=== PATIENT | female | born 1950 | race African-American/Black ===

== ENCOUNTER 2022-07-28 14:51 | Emergency (ER) | payer OTHER ==
[2022-07-28] MEDS ORDERED: NA CHLORIDE 0.9% 1,000 ML ONE ×2 (15:48→18:38)
[2022-07-28 15:49] LABS: Hematocrit 28.6 % (36.0-45.0); MCV 97.1 fL (80-100); MPV 8.5 fL (7.6-11.3); RBC Red Blood Cell Count 2.95 M/uL (3.86-4.86)
[2022-07-28 16:03] LABS: Albumin 1.7 g/dL (3.4-5.0); Bilirubin Total 21.7 mg/dL (0.2-1.0); Potassium 2.6 mEq/L (3.5-5.1); Protein, Total 6.2 g/dL (6.4-8.2)
--- NOTE | 2022-07-28 16:17 | EDPHYS ---
Physician Documentation [facility] Name: Leonie Ferreira Age: 71 yrs Sex: Female : 1950 Arrival Date: 07/28/2022 Time: 14:[address] Private MD: ED Physician Jakub Ordaz HPI: 07/28 15:35 This 71 yrs old Black Female presents to ER via Ambulatory with complaints of Urinary ms3 Problem, Skin Problem, Weight loss. 15:35 71-year-old female with no past medical history presents for 2 months of jaundice, 30 ms3 pound weight loss, itching. Patient denies pain at this time. Patient denies nausea, vomiting. Patient denies alleviating or inciting factors. Historical: - Allergies: 15:10 No Known Allergies; jl7 - Home Meds: 15:10 None [Active]; jl7 - PMHx: 15:10 None; jl7 - PSHx: 15:10 inguinal hernia repair; jl7 - Immunization history:: Adult Immunizations unknown. - Social history:: Smoking status: Patient denies any tobacco usage or history of. ROS: 15:35 Constitutional: Negative for fever, and chills. Neck: Negative for injury, pain, and ms3 swelling, Cardiovascular: Negative for chest pain, and palpitations. Respiratory: Negative for shortness of breath, cough, wheezing, and pleuritic chest pain. 15:35 Abdomen/GI: Negative for abdominal pain, nausea, vomiting, diarrhea, and constipation, MS/Extremity: Negative for injury and deformity. 15:35 Eyes: Positive for icterus. 15:35 Abdomen/GI: 15:35 Skin: Positive for jaundice. 15:35 All other systems are negative. Exam: 15:35 Constitutional: This is a well developed, well nourished patient who is awake, alert, ms3 and in no acute distress. Head/Face: Normocephalic, atraumatic. Neck: Trachea midline, no cervical lymphadenopathy. Supple, full range of motion without nuchal rigidity, or vertebral point tenderness. No Meningismus. Chest/axilla: Normal chest wall appearance and motion. Nontender with no deformity. Cardiovascular: Regular rate and rhythm with a normal S1 and S2. No gallops, murmurs, or rubs. Normal PMI, no JVD. No pulse deficits. Respiratory: Lungs have equal breath sounds bilaterally, clear to auscultation and percussion. No rales, rhonchi or wheezes noted. No increased work of breathing, no retractions or nasal flaring. Abdomen/GI: Soft, non-tender, with normal bowel sounds. No distension or tympany. No guarding or rebound. No evidence of tenderness throughout. 15:35 MS/ Extremity: Pulses equal, no cyanosis. Neurovascular intact. Full, normal range of motion. 15:35 Eyes: Pupils: equal, round, and reactive to light and accomodation, Sclera: icterus, is present. Vital Signs: 15:07 BP 136 / 65; Pulse 110; Resp 19; Temp 99.1; Pulse Ox 96% ; Pain 0/10; jl7 17:41 BP 143 / 79; Pulse 92; Pulse Ox 100% ; ap3 17:56 Weight 61.23 kg; bd 19:00 BP 148 / 69; Pulse 95; Resp 22; Pulse Ox 100% ; vc1 15:07 Pain Scale: Adult jl7 MDM: 15:12 Patient medically screened. ms3 15:35 Differential Diagnosis Hepatic CA vs Pancreas CA vs Choledocholithiasis . ms3 18:07 Data reviewed: vital signs, nurses notes, lab test result(s), radiologic studies, and ms3 as a result, I will transfer. Consideration of Admission/Observation Will transfer patient. I considered the following discharge prescriptions or medication management in the emergency department Medications were administered in the Emergency Department. See MAR. Independent interpretation of the following test(s) in the Emergency Department. Historians other than the Patient: Friend: . Counseling: I had a detailed discussion with the patient and/or guardian regarding: the historical points, exam findings, and any diagnostic results supporting the discharge/admit diagnosis, lab results, radiology results, the need to transfer to another facility. Response to treatment: There is no appreciated change of the patient's symptoms at this time, and as a result, I will transfer. ED course: Patient wishes to be DNR. Patient does not want CPR or intubation. This was witnessed by JACLYN Arauz. Discussed results of CT ultrasound and labs with patient. Discussed with patient necessity for transfer to the [facility] Center. Patient understands agrees with plan. All questions were answered. 18:08 Data reviewed: vital signs, nurses notes, lab test result(s), radiologic studies. kdr 18:22 ED course: Discussed case with Dr Pringle and she accepts patient to the medicine ms3 floor.. 07/28 15:13 Order name: CBC with Diff; Complete Time: 17:41 ms3 07/28 15:13 Order name: CMP; Complete Time: 17:41 ms3 07/28 15:13 Order name: Lipase; Complete Time: 17:41 ms3 07/28 16:07 Order name: Manual Differential; Complete Time: 17:41 EDMS 07/28 15:13 Order name: Abdomen Limited US; Complete Time: 17:41 ms3 07/28 15:13 Order name: CT Abd/Pelvis - IV Contrast Only; Complete Time: 17:41 ms3 07/28 15:13 Order name: IV Saline Lock; Complete Time: 15:39 ms3 07/28 15:13 Order name: Labs collected and sent; Complete Time: 15:39 ms3 Administered Medications: 15:44 Drug: NS 0.9% IV 1000 ml Route: IV; Rate: 1 bolus; Site: right antecubital; ap3 18:54 Follow up: IV Status: Completed infusion ap3 16:55 Drug: Potassium Chloride IV 60 mEq Route: IV; Rate: calculated rate; Site: right ap3 antecubital; 17:42 Drug: Ondansetron IVP 4 mg Route: IVP; Site: right antecubital; ap3 18:53 Follow up: Response: No adverse reaction; Nausea is decreased ap3 18:53 Drug: NS 0.9% IV 1000 ml Route: IV; Rate: 75 ml/hr; Site: right antecubital; ap3 19:55 Drug: Piperacillin-Tazobactam IVPB 3.375 grams Route: IVPB; Infused Over: 60 mins; vc1 Site: left antecubital; Disposition Summary: 07/28/22 16:16 Transfer Ordered Transfer Location: [facility] ms3 Reason: Higher level of care ms3 Condition: Stable ms3 Problem: new ms3 Symptoms: are unchanged ms3 Accepting Physician: Dr Pringle(07/28/22 20:23) vc1 Diagnosis - Unspecified jaundice ms3 - Leukocytosis ms3 - Hypokalemia ms3 - Cholangiocarcinoma ms3 - Transaminitis ms3 Forms: - Medication Reconciliation Form ms3 - SBAR form ms3 Signatures: Dispatcher [employer] EDZaheer Angelo MD MD kdr Mickail, Joel, PA PA jmm Leal, Jahala, RN RN jl7 Katherine Arauz RN RN ap3 Jakub Ordaz DO DO ms3 Alla Malcolm RN RN vc1 Corrections: (The following items were deleted from the chart) 18: 16:16 Dr [email or web address] ms3 20:23 18:23 Dr Pringle ms3 vc1
--- NOTE | 2022-07-28 16:17 | ER ---
Nurse's Notes [facility] Name: Leonie Ferreira Age: 71 yrs Sex: Female : 1950 Arrival Date: 07/28/2022 Time: 14:[address] Private MD: Diagnosis: Unspecified jaundice;Leukocytosis;Hypokalemia;Cholangiocarcinoma;Transaminitis Presentation: 07/28 15:07 Chief complaint: Patient states: Itchy skin, 30 pound weight loss without trying in jl7 about 6-8 weeks, dark urine, denies pain. Coronavirus screen: At this time, the client does not indicate any symptoms associated with coronavirus-19. Ebola Screen: No symptoms or risks identified at this time. Initial Sepsis Screen: Does the patient meet any 2 criteria? No. Patient's initial sepsis screen is negative. Does the patient have a suspected source of infection? No. Patient's initial sepsis screen is negative. Risk Assessment: Do you want to hurt yourself or someone else? Patient reports no desire to harm self or others. Onset of symptoms is unknown. Care prior to arrival: None. 15:07 Method Of Arrival: Ambulatory [facility] 15:07 Acuity: PEGGY 3 jl7 Triage Assessment: 15:10 General: Appears in no apparent distress. uncomfortable, Behavior is calm, cooperative, jl7 appropriate for age. Pain: Denies pain. EENT: Sclera/Cornea yellow. Neuro: Level of Consciousness is awake, alert, obeys commands, Oriented to person, place, time, situation. Cardiovascular: Patient's skin is warm and dry. Respiratory: Airway is patent Respiratory effort is even, unlabored, Respiratory pattern is regular, symmetrical. GI: Abdomen is round Patient currently denies diarrhea, nausea, vomiting. : Reports Dark urine. Derm: Skin is dry, Skin is normal, Skin temperature is warm. Historical: - Allergies: 15:10 No Known Allergies; jl7 - Home Meds: 15:10 None [Active]; jl7 - PMHx: 15:10 None; jl7 - PSHx: 15:10 inguinal hernia repair; jl7 - Immunization history:: Adult Immunizations unknown. - Social history:: Smoking status: Patient denies any tobacco usage or history of. Screenin:45 [facility] ED Fall Risk Assessment (Adult) History of falling in the last 3 months, ap3 including since admission No falls in past 3 months (0 pts). Abuse screen: Denies threats or abuse. Nutritional screening: No deficits noted. Tuberculosis screening: No symptoms or risk factors identified. Assessment: 15:44 General: Appears in no apparent distress. Behavior is calm, cooperative, appropriate ap3 for age. Pain: Denies pain. Neuro: Level of Consciousness is awake, alert, obeys commands, Oriented to person, place, time, situation. Cardiovascular: Patient's skin is warm and dry. Respiratory: Airway is patent Respiratory effort is even, unlabored. GI: Abdomen is round distended, Reports weight loss without trying. Derm: Reports itching. 15:45 EENT: Eyes appear yellow in color. ap3 16:30 Reassessment: Patient and/or family updated on plan of care and expected duration. Pain ap3 level reassessed. Patient is alert, oriented x 3, equal unlabored respirations, skin warm/dry/pink. 17:41 Reassessment: patient reports nausea. new verbal orders rc'd for zofran 4mg IV. ap3 17:49 Reassessment: patient reports that she does not want to be resuscitated. patient states ap3 she has an in and out of hospital DNR. 18:56 Reassessment: attempted to call report to [facility], was left on hold for 10 ap3 minutes. 19:17 Reassessment: attempted to call report to receiving facility. no answer. ap3 19:44 Reassessment: No changes from previously documented assessment. Patient and/or family vc1 updated on plan of care and expected duration. Pain level reassessed. Patient is alert, oriented x 3, equal unlabored respirations, skin warm/dry/pink. Vital Signs: 15:07 BP 136 / 65; Pulse 110; Resp 19; Temp 99.1; Pulse Ox 96% ; Pain 0/10; jl7 17:41 BP 143 / 79; Pulse 92; Pulse Ox 100% ; ap3 17:56 Weight 61.23 kg; bd 19:00 BP 148 / 69; Pulse 95; Resp 22; Pulse Ox 100% ; vc1 15:07 Pain Scale: Adult jl7 ED Course: 14:55 Patient arrived in ED. mr 14:59 Jakub Ordaz DO is Attending Physician. ms3 15:09 Triage completed. jl7 15:10 Arm band placed on right wrist. jl7 15:21 Katherine Arauz, RN is Primary Nurse. ap3 15:44 Initial lab(s) drawn, by me, sent to lab. Inserted saline lock: 22 gauge in right ap3 antecubital area, using aseptic technique. Blood collected. 16:09 Abdomen Limited US In Process Unspecified. EDMS 17:13 CT Abd/Pelvis - IV Contrast Only In Process Unspecified. EDMS 17:41 Warm blanket given. ap3 17:50 Patient has correct armband on for positive identification. Bed in low position. Call ap3 light in reach. Side rails up X2. Adult w/ patient. Pulse ox on. NIBP on. 17:53 initiated transfer to [facility]. bd 18:08 Attending Physician role handed off by Jakub Ordaz DO kdr 18:08 Zaheer Driver MD is Attending Physician. kdr 18:22 Jakub Ordaz DO is Attending Physician. ms3 19:50 Inserted saline lock: 22 gauge in left antecubital area, using aseptic technique. vc1 20:00 No provider procedures requiring assistance completed. vc1 20:19 Patient transferred, IV remains in place. vc1 Administered Medications: 15:44 Drug: NS 0.9% IV 1000 ml Route: IV; Rate: 1 bolus; Site: right antecubital; ap3 18:54 Follow up: IV Status: Completed infusion ap3 16:55 Drug: Potassium Chloride IV 60 mEq Route: IV; Rate: calculated rate; Site: right ap3 antecubital; 17:42 Drug: Ondansetron IVP 4 mg Route: IVP; Site: right antecubital; ap3 18:53 Follow up: Response: No adverse reaction; Nausea is decreased ap3 18:53 Drug: NS 0.9% IV 1000 ml Route: IV; Rate: 75 ml/hr; Site: right antecubital; ap3 19:55 Drug: Piperacillin-Tazobactam IVPB 3.375 grams Route: IVPB; Infused Over: 60 mins; vc1 Site: left antecubital; Medication: 19:59 VIS not applicable for this client. vc1 Outcome: 16:16 ER care complete, transfer ordered by . ms3 20:19 Transferred by ground EMS to [facility], [facility], Transfer form completed. vc1 20:19 Condition: good 20:19 Instructed on the need for transfer. 20:23 Patient left the ED. vc1 Signatures: Dispatcher [employer] EDMS Lennie Umana Kevin, MD MD kdr Rivera, Mary mr Hutton, Santiago, RN RN jl7 Katherine Arauz RN RN ap3 Jakub Ordaz DO DO ms3 Alla Malcolm RN RN vc1 Corrections: (The following items were deleted from the chart) 18:56 18:53 Reassessment: ap3 ap3
[2022-07-28 16:38] LABS: Blood Morphology Comment NOT SEEN (NOT SEEN); Platelet Estimate INCR
[2022-07-28] MEDS ORDERED: KCL 20 MEQ/100 mL IVPB 300 ML IV ONE (16:57)
[2022-07-28] MEDS ORDERED: KCL 20 MEQ/100 mL IVPB 100 ML IV SCH (17:00)
--- NOTE | 2022-07-28 17:36 | RAD REPORT ---
EXAM DESCRIPTION: CT - Abdomen Pelvis W Contrast - 07/28/2022 5:11 pm CLINICAL HISTORY: Abdominal pain/jaundice COMPARISON: none. TECHNIQUE: Computed axial tomography of the abdomen pelvis was obtained. 100 cc Isovue-300 was admin istered intravenously. Oral contrast was not requested which limits evaluation of bowel and appendix All CT scans are performed using dose optimization technique as appropriate and may include automated exposure control or mA/KV adjustment according to patient size. FINDINGS: Gallbladder contains multiple stones. Marked dilatation intrahepatic biliary tree. 4 centimeter hypodense lesion anterior segment right lob e of the liver. Common bile and common hepatic ducts are filled with soft tissue and dilated. Pancreatic body and tail unremarkable. Adrenals and spleen are unremarkable Marked right hydronephrosis. Moderate left hydronephrosis. The ureters are dilated to the level of th e bladder. There appears to be a bladder prolapse. Small inguinal hernias . Retrocrural and periaortic/caval lymphadenopathy. Lymph nodes measure up to 2 centimeters. Small to moderate amount of ascites Several soft tissue nodules anterior subcutaneous fat IMPRESSION: 4 centimeter hepatic mass. Soft tissue throughout the extrahepatic biliary tree. Marked intrahepatic dilatation. It is possible the patient has a cholangiocarcinoma. Retrocrural and periaortic/caval lymphadenopathy likely neoplastic Several soft tissue nodules anterior subcutaneous fat may be neoplastic Large bladder prolapse. This likely obstructs ureters bilaterally resulting in marked right and moder ate left hydronephrosis Cholelithiasis It is recommended that the patient have an MRI abdomen and MRCP for further evaluation
--- NOTE | 2022-07-28 17:37 | RAD REPORT ---
EXAM DESCRIPTION: US - Abdomen Exam Limited - 07/28/2022 4:07 pm CLINICAL HISTORY: Abdominal pain. COMPARISON: None. FINDINGS: Gallbladder contains many stones. Gallbladder wall is not thickened. Marked dilatation of the intra and extrahepatic biliary tree. Marked right hydronephrosis IMPRESSION: Cholelithiasis without evidence of cholecystitis Marked dilatation of biliary tree Marked right hydronephrosis
[2022-07-28] MEDS ORDERED: ONDANSETRON 4 MG/2 ML VIAL ONE (17:40)
[2022-07-28] MEDS ORDERED: NA CHLORIDE 0.9% 100 ML ONE (19:49)
[2022-07-28] MEDS ORDERED: PIPERACIL/TAZO 3.375 GM VIAL IV ONE (19:49)
[2022-07-28 21:24] VITALS: TEMP 99.1
[2022-07-28 21:25] VITALS: O2SAT 100
[2022-07-28 21:26] VITALS: BP 148/69
== END 2022-07-28 20:23 | disposition short-term general hospital (02) ==
LOC: ER 14:51
DX: C22.1 Intrahepatic bile duct carcinoma (principal); D72.829 Elevated white blood cell count, unspecified; E87.6 Hypokalemia; R74.01 Elevation of levels of liver transaminase levels
CPT/HCPCS: 85025; 36415; 83690; 80053; 74177; 76705; 99285; Q9967; J3480; J2543; J2405; J7030 ×2

== ENCOUNTER 2022-08-11 20:09 | Emergency (ER) | payer OTHER ==
--- OUTSIDE RECORDS SUMMARY | 2022-08-11 20:15 | XMS REPORT | Continuity of Care Document ---
:1950 Author Organization [facility] t Address [address] [facility] [address] [place] [address] Care Team Providers Name Role Phone No, Pcp [facility] Primary Care Physician Unavailable FILIPE COPPOLA Attending Clinician Unavailable RAUL GUTIERREZ Attending Clinician Unavailable VERÓNICA RIZZO Attending Clinician Unavailable MARGI BANG Attending Clinician Unavailable CR RUBIO Attending Clinician Unavailable MARIAM PRINGLE Attending Clinician Unavailable GILES BRODERICK Attending Clinician Unavailable VERÓNICA RIZZO Attending Clinician Unavailable Ramon Perry MD Attending Clinician Verónica Rizzo MD Attending Clinician [phone] ALINE MCGRAW Attending Clinician Unavailable Aline Mcgraw Attending Clinician Mariam Pringle MD Attending Clinician ALINE MCGRAW Admitting Clinician Unavailable Payers Payer Name Policy Type Policy Number Effective Date Expiration Date S maryam MEDICARE A B [id number] 2017 00:00:00 [employer] HMO POS QPOS [id number] 2017 00:00:00 MEDICARE PART A [id number] 2017 \\T\\ B - MEDICARE 00:00:00 OPEN ACCESS [id number] 2022 HMO/POS/EPO/PPO - 00:00:00 [employer] Problems Condition Condition Condition Status Onset Resolution Last Treating Co mments Source Name Details Category Date Date Treatment Clinician Date Itching Itching Disease [facility] Liver mass Liver mass Disease [facility] Jaundice Jaundice Disease [facility] Allergies, Adverse Reactions, Alerts Allergy Allergy Status Severity Reaction(s) Onset Inactive Treating Comm ents Source Name Type Date Date Clinician NO KNOWN Allergy Active [facility] Social History Social Habit Start Date Stop Date Quantity Comments Source Alcohol intake 2022-07-30 2022-07-30 .43 /d [facility]00 00:00:00 [facility] Center Exposure to 2022-07-19 2022-07-29 Not sure [facility] SARS-CoV-2 00:00:00 00:28:00 [facility] (event) Tobacco use and 2022-07-28 2022-07-28 Smokeless tobacco [facility] exposure 00:00:00 00:00:00 non-user [facility] Sex Assigned [birth year] [facility] 00:00:00 00:00:00 [facility] Smoking Status Start Date Stop Date Source Never smoked tobacco [facility] Medications This patient has no known medications. Vital Signs Vital Name Observation Time Observation Value Comments Source HEIGHT 2022-08-04 13:33:00 167 cm WEIGHT 2022-07-29 06:00:00 61.009 kg HEIGHT 2022-08-04 13:33:00 167 cm WEIGHT 2022-07-29 06:00:00 61.009 kg Heart rate 2022-07-31 11:11:47 86 /min [facility] Respiratory rate 2022-07-31 11:11:47 18 /min [facility] Oxygen saturation in 2022-07-31 11:11:47 100 /min [facility] Arterial blood by Medical Ce nter Pulse oximetry Body temperature 2022-07-31 11:11:34 36.83 Melinda [facility] Systolic blood 2022-07-31 11:10:45 112 mm[Hg] [facility] Diastolic blood 2022-07-31 11:10:45 61 mm[Hg] [facility] Body weight 2022-07-29 06:00:00 61.009 kg [facility] Procedures Procedure Date / Time Performing Clinician Source Performed REPORT OF PROCEDURE - 2022-07-31 08:23:38 Ravindra [facility] ENDOSCOPY URL [facility] COMPREHENSIVE METABOLIC 2022-07-31 04:44:00 Margi Bang [facility] MAGNESIUM 2022-07-31 04:44:00 Margi Bang [facility] CBC W/PLT COUNT & AUTO 2022-07-31 04:44:00 Raul Gutierrez [facility] CBC W/PLT COUNT & AUTO 2022-07-31 04:44:00 Raul Gutierrez [facility] [place] ERCP 2022-07-30 11:20:00 Ravindra [facility] CYTOLOGY 2022-07-30 11:14:00 Ravindra [facility] CYTOLOGY REQUEST 2022-07-30 11:14:00 Ravindra [facility] PROCEDURE W/ C-ARM 2022-07-30 10:27:00 Ravindra [facility] ERCP, WITH SPHINCTEROTOMY 2022-07-30 10:27:00 Ravindra [facility] ERCP, WITH BALLOON SWEEP OF 2022-07-30 10:27:00 Ravindra [facility] BILE DUCTS [facility] ENDOSCOPIC RETROGRADE 2022-07-30 10:27:00 Ravindra [facility] CHOLANGIOPANCREATOGRAPHY, [facility] WITH BILE DUCT STENT INSERTION PROTHROMBIN TIME/INR 2022-07-30 05:15:00 Margi Bang [facility] CBC (HEMOGRAM ONLY) 2022-07-30 05:15:00 Margi Bang [facility] COMPREHENSIVE METABOLIC 2022-07-30 05:15:00 Margi Bang [facility] MAGNESIUM 2022-07-30 05:15:00 Margi Bang [facility] CT CHEST WITH IV CONTRAST 2022-07-29 16:00:17 Corina Mcgraw [facility] CT ABDOMEN/PELVIS WITH & 2022-07-29 16:00:17 [facility] WITHOUT IV CONTRAST Medical Cent er CARCINOEMBRYONIC ANTIGEN 2022-07-29 12:38:00 [facility] (CEA) [facility] Center PREALBUMIN 2022-07-29 12:38:00 [facility] XR CHEST 1 VIEW PORTABLE / 2022-07-29 10:47:18 Dhiraj Singh [facility] ABORH, MANUAL 2022-07-29 05:40:00 Karla Og [facility] CBC W/PLT COUNT & AUTO 2022-07-29 04:10:00 Aline Mcgraw [facility] BASIC METABOLIC PANEL 2022-07-29 04:10:00 Aline Mcgraw [facility] HEPATIC FUNCTION PANEL 2022-07-29 04:10:00 Aline Mcgraw [facility] PHOSPHORUS 2022-07-29 04:10:00 [facility] MAGNESIUM 2022-07-29 04:10:00 [facility] PROTHROMBIN TIME/INR 2022-07-29 04:10:00 [facility] LIPID PANEL 2022-07-29 04:10:00 [facility] HEMOGLOBIN A1C 2022-07-29 04:10:[address] [facility] TYPE AND SCREEN, AUTOMATED 2022-07-29 04:10:00 Yanick Mcgraw [facility] CBC W/PLT COUNT & AUTO 2022-07-29 04:10:[address] [facility] Plan of Care Planned Activity Planned Date Details Comments Source Future Scheduled 2023-07-[address] [facility] Test 00:00:00 Counseling and Medical Cente r Screening (12+) [code = Tobacco Cessation Counseling and Screening (12+)] Future Scheduled 2022-10-[address] [facility] Test 00:00:00 (Season Ended) [code = Medic al Center Influenza Vaccine (Season Ended)] Future Scheduled 2022-02-[address] [facility] Test 00:00:00 (12+) [code = Medical Center DEPRESSION SCREENING (12+)] Future Scheduled 2022-02-16 FALLS RISK SCREENING [facility] Test 00:00:00 [code = FALLS RISK Medical C enter SCREENING] Future Scheduled 2019-09-23 Screening for malignant [facility] Test 00:00:00 neoplasm of breast Medical C enter (procedure) [code = 174452603] Future Scheduled 2018-09-[address] [facility] Test 00:00:00 WELLNESS (YEAR 2 or Medical Center FIRST YEAR if no IPPE) [code = MEDICARE ANNUAL WELLNESS (YEAR 2 or FIRST YEAR if no IPPE)] Future Scheduled 2017 PNEUMOCOCCAL 65+ YRS ([address] [facility] Test 00:00:00 - PCV) [code = Medical Cente r PNEUMOCOCCAL 65+ YRS (1 - PCV)] Future Scheduled 2002 SHINGLES VACCINES ([address] [facility] Test 00:00:00 2) [code = SHINGLES Medical Center VACCINES (1 of 2)] Future Scheduled 1971-10-17 DTAP/TDAP/TD VACCINES [facility] 00:00:00 (1 - Tdap) [code = Medical C enter DTAP/TDAP/TD VACCINES (1 - Tdap)] Future Scheduled 1970 HEPATITIS C SCREENING [facility] 00:00:00 [code = HEPATITIS C Medical Center SCREENING] Future Scheduled 1951-04-15 COVID-19 VACCINE (#1) [facility] 00:00:00 [code = COVID-[address] VACCINE (#1)] Future Scheduled 1952 CT Colonography (combo) [facility] 00:00:00 [code = CT Colonography [facility] (combo)] Future Scheduled 1950 Screening for malignant [facility] Test 00:00:00 neoplasm of colon Medical Ce nter (procedure) [code = 055324183] Future Scheduled 1950 Screening for malignant [facility] Test 00:00:00 neoplasm of colon Medical Ce nter (procedure) [code = 668074997] Future Scheduled 1950 DXA SCAN [code = DXA [facility] Test 00:00:00 SCAN] [facility] Future Scheduled 1950 Screening for malignant [facility] Test 00:00:00 neoplasm of colon Medical Ce nter (procedure) [code = 217805692] Future Scheduled 1950 Screening for malignant [facility] Test 00:00:00 neoplasm of colon Medical Ce nter (procedure) [code = 008054209] Future Scheduled 1950 Sigmoidoscopy [code = [facility] 00:[facility]00 Sigmoidoscopy] Medical Cente r Encounters Start End Encounter Admission Attending Care Care Encounter Source Date/Time Date/Time Type Type Clinicians Facility Department ID 2022-08-05 Inpatient ER LASHONDAORLANDOYAKOV, [facility] [id number] [facility] 00:00:00 FILIPE 2022-08-04 Inpatient ER CELI, [facility] [id number] SLE 13:24:24 YAASH 2022-07-30 Inpatient ER OTHMAN, [facility] [id number] SLE 12:22:34 MOHAMED 2022-07-29 Inpatient ER BANG, [facility] [id number] SLE 08:07:31 MARGI 2022-08-14 2022-08-14 Outpatient EL RAMIRO, [facility] [id number] SLE 00:00:00 00:00:00 CR 2022-07-28 2022-08-05 Inpatient ER CELI, [facility] [id number] [facility] 21:15:00 10:56:00 YASHASH 2022-08-04 2022-08-04 Inpatient ER GILES BRODERICK [facility] SLE [id number] [facility] 16:39:37 00:00:00 2022-07-30 2022-07-30 Outpatient JENNI RIZZO [facility] [id number] [address] [place] [address] 14:55:04 14:55:04 [facility] 2022-07-30 2022-07-30 Anesthesia [facility], [facility] [id number] 10:38:00 11:42:00 Event [facility] 2022-07-30 2022-07-30 [facility] [id number] 10:00:00 11:30:00 [facility] 2022-07-29 2022-07-29 Inpatient ER [facility], [facility] [id number] [facility] 14:50:40 23:59:00 [facility] 2022-07-29 2022-07-29 [facility], [facility] [id number] 13:40:00 23:59:00 Encounter [facility] 2022-07-29 2022-07-29 Travel [facility] [id number] [facility] 00:[facility]00 00:00:00 [facility] 2022-07-28 2022-07-28 [facility] [id number] 00:00:00 00:00:00 ion [facility] Results Test Test Test Results Result Source Description Time Comments Comments TISSUE EXAM 2022-07- Surgical Pathology Report Case: [id number] Authorizing Provider: 10:59:02 Raul Gutierrez MD Collected: 08/04/2022 05:43 PM Ordering Location: [address] Received: 08/05/2022 07:28 AM Service Pathologist: Maria Dolores White MD Specimen: Retroperitoneum, LEFT RETROPERITONEAL LYMPH NODE BIOPSY "Lymph node," left retroperitoneum, biopsy: - 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 Scant fragments of skeletal muscle are seen. The histomorphology and immunophenotype is not entirely specific but supports a upper gastrointestinal or pancreaticobiliary primary. Correlation with the imaging and endoscopic findings is recommended. No definitive lymphoid element is present, but the findings may represent a completely replaced lymph node. Clinical and imaging correlation is recommended. Dr. Ciera Rocha reviewed the case and agrees with no definitive lymphoid elements.Block A1 has adequate tumor cellularity for additional ancillary studies.[id number], [id number], [id number] patient is a 71-year-old female with a mass which appears to originate from the inferior surface of the gallbladder extends into segment V of the liver and into the brittany hepatis. There are greater than 30 lung metastases and extensive retroperitoneal lymphadenopathy. A. RetroperitoneumReceived in formalin labeled with the patient's name, medical record number and "retroperitoneum" are multiple marcelino to marcelino-white soft tissue cores ranging in size from 0.1-1.1 cm, which are submitted in toto in A1-A2.Ilsa BanksPerformed- CK7: Diffusely positive- CK20: Negative- CDX2: Shila positive- TTF1: Negative- GATA3: NegativeThe interpretation of this case included the use of immunohistochemistry or special stains.Control Slides Examined: In-house known positive controls were evaluated along with the test tissue. These control slides run alongside of the patients sample show appropriate staining. Internal positive and negative controls when available are evaluated Immunohistochemistry technical testing was performed at [facility], Pathology Laboratory where it was developed and its performance characteristics were determined. It has not been cleared or approved by the U.S. Food and Drug Administration. The FDA has determined that such clearance or approval is not necessary. The test is used for clinical purposes. It should not be regarded as investigational or for research. This laboratory is certified under the Clinical Laboratory Improvement Amendments of 1988 (CLIA-88) as qualified to perform high complexity clinical laboratory testing.[facility], Department of Pathology, [address] [place] [address], [facility], Department of Pathology, [address] [place] [address], [facility], [facility], [address] [place] [address], [address] BIOPSY 2022-07- ABDOMEN 20 [facility]40[facility] 1950 Sex: F PRO CEDURE: Image-guided biopsyProcedural PersonnelAttending physician(s): Filipe DELUNAre-procedure diagnosis: Retroperitoneal lymphadenopathy in the settingof gallbladder/hepatic mass.Post-procedure diagnosis: SameIndication: Histopathologic diagnosisPrevious biopsy of same target (QCDR): NoAdditional clinical history: NoneComplications: No immediate complications.IMPRESSION:Image-g uided biopsy of pathologic appearing Left retroperitoneal lymphnode.Plan: Specimen(s) sent for evaluation. PROCEDURE SUMMARY:- Percutaneous CT-guided coaxial core needle biopsy- Additional procedure(s): NonePROCEDURE DETAILS:Pre-procedureReference imaging for biopsy target: CT 07/29/2022onsent: Informed consent for the procedure including risks, benefitsand alternatives was obtained and time-out was performed prior to theprocedure.Preparation: The site was prepared and draped using maximal sterilebarrier technique including cutaneous antisepsis.Anesthesia/sedationLe jana of anesthesia/sedation: Moderate sedation (conscious sedation)Medications: 1 mg Versed, 50 mcg fentanyl IV.Anesthesia/sedation administered by: Independent trained observer underattending supervision with continuous monitoring of the patient?s levelof consciousness and physiologic statusTotal intra-service sedation time (minutes): 30Imaging prior to biopsyThe patient was positioned prone. Initial imaging was performed.Biopsy target:- Maximal diameter (cm): 2.6- Location: Left retroperitoneal infrarenal levelOther findings: NoneBiopsy Local anesthesia was administered. Under imaging guidance as stated inthe procedure summary, the biopsy needle was advanced to the target andbiopsy was performed.Coaxial needle: 17 gaugeCore needle biopsy device: Azimuth needle size: 18 gaugeNumber of core specimens: 5Needle removalThe biopsy needle was removed and a sterile dressing was applied.Tract embolization: NoneImaging following biopsyPost-biopsy imaging: Noncontrast CTPost-biopsy imaging findings: No immediate complicationsContrastContrast agent: NoneRadiation Dose (Dose modulation, iterative reconstruction, and/orweight-based adjustment of the mA/kV was utilized to reduce theradiation dose to as low as reasonably achievable.CT dose length product (mGy-cm): 507 Additional DetailsAdditional description of procedure: NoneEquipment details: NoneSpecimens removed: Biopsy samples as detailed aboveEstimated blood loss (mL): Less than 5Electronically Signed By: Filipe Coppola08/05/2022 12:42 CDTWorkstation Name: [id number] COMPREHENSIVE METABOLIC PANEL 2022-08-05 12:04:26 Test Item Value Reference Range Interpretation Comme nts TOTAL PROTEIN (BEAKER) 5.6 gm/dL 6.0-8.3 L (test code = 770) ALBUMIN (BEAKER) (test 2.1 g/dL 3.5-5.0 L code = 1145) ALKALINE PHOSPHATASE 571 U/L 40-150 H (BEAKER) (test code = 346) BILIRUBIN TOTAL (BEAKER) 6.4 mg/dL 0.2-1.2 H (test code = 377) SODIUM (BEAKER) (test 137 meq/L 136-145 code = 381) POTASSIUM (BEAKER) (test 3.2 meq/L 3.5-5.1 L code = 379) CHLORIDE (BEAKER) (test 113 meq/L 98-107 H code = 382) CO2 (BEAKER) (test code 15 meq/L 22-29 L = 355) BLOOD UREA NITROGEN 7 mg/dL 7-21 (BEAKER) (test code = 354) CREATININE (BEAKER) 0.61 mg/dL 0.57-1.25 (test code = 358) GLUCOSE RANDOM (BEAKER) 75 mg/dL 70-105 (test code = 652) CALCIUM (BEAKER) (test 8.2 mg/dL 8.4-10.2 L code = 697) AST (SGOT) (BEAKER) 44 U/L 5-34 H (test code = 353) ALT (SGPT) (BEAKER) 62 U/L 6-55 H (test code = 347) EGFR (BEAKER) (test code 97 mL/min/1.73 sq Interpretation of eGFR values = 1092) m Stage Descripti on Result G1 Normal or high >=90 G2 Mildly decreased 60-89 G3a Mildly to moderately 45-5 9 G3b Moderately to severely 30- 44 G4 Severly decreased 15-29 G5 Kidney failure <15Repo rted eGFR is based on the CK D-EPI 2020 equation that d oes not use a race coefficien tEstimated GFR is not as accurate as Creatinine Clearance in pr edicting glomerular filt ration rate. Estimated GFR i s not applicable for dialysis trung crane Erp Consultant ID - ADMINSpecimen moderately [id number] 12:04:25 Test Item Value Reference Range Interpretation Comments MAGNESIUM (BEAKER) (test code = 1.6 mg/dL 1.6-2.6 627) Erp Consultant ID - ADMINCBC W/PLT COUNT & AUTO [id number] 06:01:43 Test Item Value Reference Range Interpretation Comments WHITE BLOOD CELL COUNT 9.1 K/ L 3.5-10.5 (BEAKER) (test code = 775) RED BLOOD CELL COUNT 2.75 M/ L 3.93-5.22 L (BEAKER) (test code = 761) HEMOGLOBIN (BEAKER) 9.0 GM/DL 11.2-15.7 L (test code = 410) HEMATOCRIT (BEAKER) 28.1 % 34.1-44.9 L (test code = 411) MEAN CORPUSCULAR 102 fL 79-95 H Discordant results VOLUME (BEAKER) (test compar ed to previous code = 753) results; clinic al correlation req uired MEAN CORPUSCULAR 32.7 pg 25.6-32.2 H HEMOGLOBIN (BEAKER) (test code = 751) MEAN CORPUSCULAR 32.0 GM/DL 32.2-35.5 L HEMOGLOBIN CONC (BEAKER) (test code = 752) RED CELL DISTRIBUTION 19.0 % 11.7-14.4 H WIDTH (BEAKER) (test code = 412) PLATELET COUNT 335 K/CU MM 150-450 (BEAKER) (test code = 756) MEAN PLATELET VOLUME 10.0 fL 9.4-12.3 (BEAKER) (test code = 754) NUCLEATED RED BLOOD 0 /100 WBC 0-0 CELLS (BEAKER) (test code = 413) NEUTROPHILS RELATIVE 72 % PERCENT (BEAKER) (test code = 429) LYMPHOCYTES RELATIVE 17 % PERCENT (BEAKER) (test code = 430) MONOCYTES RELATIVE 8 % PERCENT (BEAKER) (test code = 431) EOSINOPHILS RELATIVE 2 % PERCENT (BEAKER) (test code = 432) BASOPHILS RELATIVE 1 % PERCENT (BEAKER) (test code = 437) NEUTROPHILS ABSOLUTE 6.55 K/ L 1.56-6.13 H COUNT (BEAKER) (test code = 670) LYMPHOCYTES ABSOLUTE 1.52 K/ L 1.18-3.74 COUNT (BEAKER) (test code = 414) MONOCYTES ABSOLUTE 0.71 K/ L 0.24-0.36 H COUNT (BEAKER) (test code = 415) EOSINOPHILS ABSOLUTE 0.17 K/ L 0.04-0.36 COUNT (BEAKER) (test code = 416) BASOPHILS ABSOLUTE 0.09 K/ L 0.01-0.08 H COUNT (BEAKER) (test code = 417) IMMATURE 1.00 % 0.00-1.00 GRANULOCYTES-RELATIVE PERCENT (BEAKER) (test code = 2801) [id number] 04:26:00 Test Item Value Reference Range Interpretation Comments MAGNESIUM (BEAKER) (test code = 1.7 mg/dL 1.6-2.6 627) Erp Consultant ID - BVCOMPREHENSIVE METABOLIC [id number] 04:26:00 Test Item Value Reference Range Interpretation Comments TOTAL PROTEIN 5.4 gm/dL 6.0-8.3 L (BEAKER) (test code = 770) ALBUMIN (BEAKER) 2.0 g/dL 3.5-5.0 L (test code = 1145) ALKALINE 624 U/L 40-150 H PHOSPHATASE (BEAKER) (test code = 346) BILIRUBIN TOTAL 6.7 mg/dL 0.2-1.2 H (BEAKER) (test code = 377) SODIUM (BEAKER) 139 meq/L 136-145 (test code = 381) POTASSIUM (BEAKER) 3.4 meq/L 3.5-5.1 L (test code = 379) CHLORIDE (BEAKER) 115 meq/L 98-107 H (test code = 382) CO2 (BEAKER) (test 15 meq/L 22-29 L code = 355) BLOOD UREA 7 mg/dL 7-21 NITROGEN (BEAKER) (test code = 354) CREATININE 0.64 mg/dL 0.57-1.25 (BEAKER) (test code = 358) GLUCOSE RANDOM 92 mg/dL 70-105 (BEAKER) (test code = 652) CALCIUM (BEAKER) 8.0 mg/dL 8.4-10.2 L (test code = 697) AST (SGOT) 47 U/L 5-34 H (BEAKER) (test code = 353) ALT (SGPT) 73 U/L 6-55 H (BEAKER) (test code = 347) EGFR (BEAKER) 96 Interpretatio n of eGFR (test code = 1092) mL/min/1.[address] age Description sq m Result G1 Linsey l or high >=90 G2 Mildly decreased 60-89 G3a Mildl y to moderately 45-5 9 G3b Moderately to s everely 30-44 G4 Severl y decreased 15-29 G5 Kidney failure <15Reported eGF R is based on the CKD-EPI 202 equation that d oes not use a race coefficientEsti mated GFR is not as accur ate as Creatinine Eva acevedo in predicting glom erular filtration rate . Estimated GFR is not appl icable for dialysis patien ts Erp Consultant ID - BVSpecimen moderately ictericPROTHROMBIN [id number] 03:58:39 Test Item Value Reference Range Interpretation Comments PROTIME (BEAKER) (test code = 17.0 seconds 11.9-14.2 H 759) INR (BEAKER) (test code = 370) 1.48 <=5.90 RECOMMENDED COUMADIN/WARFARIN INR THERAPY RANGESSTANDARD DOSE: 2.0 - 3.0 Includes: PROPHYLAXIS for venous thrombosis, systemic embolization; TREATMENT for venous thrombosis and/or pulmonary embolus.HIGH RISK: Target INR is 2.5-3.5 for patients with mechanical heart valves.CBC W/PLT COUNT & AUTO [id number] 03:51:36 Test Item Value Reference Range Interpretation Comments WHITE BLOOD CELL COUNT (BEAKER) 12.3 K/ L 3.5-10.5 H (test code = 775) RED BLOOD CELL COUNT (BEAKER) 2.58 M/ L 3.93-5.22 L (test code = 761) HEMOGLOBIN (BEAKER) (test code = 8.3 GM/DL 11.2-15.7 L 410) HEMATOCRIT (BEAKER) (test code = 25.4 % 34.1-44.9 L 411) MEAN CORPUSCULAR VOLUME (BEAKER) 98 fL 79-95 H (test code = 753) MEAN CORPUSCULAR HEMOGLOBIN 32.2 pg 25.6-32.2 (BEAKER) (test code = 751) MEAN CORPUSCULAR HEMOGLOBIN CONC 32.7 GM/DL 32.2-35.5 (BEAKER) (test code = 752) RED CELL DISTRIBUTION WIDTH 20.0 % 11.7-14.4 H (BEAKER) (test code = 412) PLATELET COUNT (BEAKER) (test 354 K/CU MM 150-450 code = 756) MEAN PLATELET VOLUME (BEAKER) 9.7 fL 9.4-12.3 (test code = 754) NUCLEATED RED BLOOD CELLS 0 /100 WBC 0-0 (BEAKER) (test code = 413) NEUTROPHILS RELATIVE PERCENT 73 % (BEAKER) (test code = 429) LYMPHOCYTES RELATIVE PERCENT 16 % (BEAKER) (test code = 430) MONOCYTES RELATIVE PERCENT 8 % (BEAKER) (test code = 431) EOSINOPHILS RELATIVE PERCENT 1 % (BEAKER) (test code = 432) BASOPHILS RELATIVE PERCENT 1 % (BEAKER) (test code = 437) NEUTROPHILS ABSOLUTE COUNT 8.96 K/ L 1.56-6.13 H (BEAKER) (test code = 670) LYMPHOCYTES ABSOLUTE COUNT 1.91 K/ L 1.18-3.74 (BEAKER) (test code = 414) MONOCYTES ABSOLUTE COUNT (BEAKER) 1.02 K/ L 0.24-0.36 H (test code = 415) EOSINOPHILS ABSOLUTE COUNT 0.16 K/ L 0.04-0.36 (BEAKER) (test code = 416) BASOPHILS ABSOLUTE COUNT (BEAKER) 0.09 K/ L 0.01-0.08 H (test code = 417) IMMATURE GRANULOCYTES-RELATIVE 1.60 % 0.00-1.00 H PERCENT (BEAKER) (test code = 2801) COMPREHENSIVE METABOLIC [id number] 09:00:10 Test Item Value Reference Range Interpretation Comments TOTAL PROTEIN 5.3 gm/dL 6.0-8.3 L (BEAKER) (test code = 770) ALBUMIN (BEAKER) 2.1 g/dL 3.5-5.0 L (test code = 1145) ALKALINE 752 U/L 40-150 H PHOSPHATASE (BEAKER) (test code = 346) BILIRUBIN TOTAL 7.5 mg/dL 0.2-1.2 H (BEAKER) (test code = 377) SODIUM (BEAKER) 139 meq/L 136-145 (test code = 381) POTASSIUM (BEAKER) 3.5 meq/L 3.5-5.1 (test code = 379) CHLORIDE (BEAKER) 115 meq/L 98-107 H (test code = 382) CO2 (BEAKER) (test 14 meq/L 22-29 L code = 355) BLOOD UREA 8 mg/dL 7-21 NITROGEN (BEAKER) (test code = 354) CREATININE 0.64 mg/dL 0.57-1.25 (BEAKER) (test code = 358) GLUCOSE RANDOM 87 mg/dL 70-105 (BEAKER) (test code = 652) CALCIUM (BEAKER) 8.1 mg/dL 8.4-10.2 L (test code = 697) AST (SGOT) 76 U/L 5-34 H (BEAKER) (test code = 353) ALT (SGPT) 99 U/L 6-55 H (BEAKER) (test code = 347) EGFR (BEAKER) 96 Interpretatio n of eGFR (test code = 1092) mL/min/1.[address] age Description sq m Result G1 Linsey l or high >=90 G2 Mildly decreased 60-89 G3a Mildl y to moderately 45-5 9 G3b Moderately to s everely 30-44 G4 Severl y decreased 15-29 G5 Kidney failure <15Reported eGF R is based on the CKD-EPI 2020 equation that d oes not use a race coefficientEsti mated GFR is not as accur ate as Creatinine Eva kristina in predicting glom erular filtration rate . Estimated GFR is not appl icable for dialysis patien ts Erp Consultant ID - ADMINOperator ID - TRACE BSpecimen moderately ictericMAGNESIUM 2022-08-03 07:14:54 Test Item Value Reference Range Interpretation Comments MAGNESIUM (BEAKER) (test code = 1.8 mg/dL 1.6-2.6 627) Erp Consultant ID - ADMINCBC W/PLT COUNT & AUTO [id number] 06:27:26 Test Item Value Reference Range Interpretation Comments WHITE BLOOD CELL COUNT 11.3 K/ L 3.5-10.5 H (BEAKER) (test code = 775) RED BLOOD CELL COUNT 2.72 M/ L 3.93-5.22 L (BEAKER) (test code = 761) HEMOGLOBIN (BEAKER) 9.0 GM/DL 11.2-15.7 L (test code = 410) HEMATOCRIT (BEAKER) 27.4 % 34.1-44.9 L (test code = 411) MEAN CORPUSCULAR 101 fL 79-95 H Unable to r eport due VOLUME (BEAKER) (test to abn ormal Platelet code = 753) population distribution. MEAN CORPUSCULAR 33.1 pg 25.6-32.2 H HEMOGLOBIN (BEAKER) (test code = 751) MEAN CORPUSCULAR 32.8 GM/DL 32.2-35.5 HEMOGLOBIN CONC (BEAKER) (test code = 752) RED CELL DISTRIBUTION 21.1 % 11.7-14.4 H WIDTH (BEAKER) (test code = 412) PLATELET COUNT 367 K/CU MM 150-450 (BEAKER) (test code = 756) MEAN PLATELET VOLUME 10.0 fL 9.4-12.3 (BEAKER) (test code = 754) NUCLEATED RED BLOOD 0 /100 WBC 0-0 CELLS (BEAKER) (test code = 413) NEUTROPHILS RELATIVE 73 % PERCENT (BEAKER) (test code = 429) LYMPHOCYTES RELATIVE 15 % PERCENT (BEAKER) (test code = 430) MONOCYTES RELATIVE 8 % PERCENT (BEAKER) (test code = 431) EOSINOPHILS RELATIVE 1 % PERCENT (BEAKER) (test code = 432) BASOPHILS RELATIVE 1 % PERCENT (BEAKER) (test code = 437) NEUTROPHILS ABSOLUTE 8.28 K/ L 1.56-6.13 H COUNT (BEAKER) (test code = 670) LYMPHOCYTES ABSOLUTE 1.66 K/ L 1.18-3.74 COUNT (BEAKER) (test code = 414) MONOCYTES ABSOLUTE 0.92 K/ L 0.24-0.36 H COUNT (BEAKER) (test code = 415) EOSINOPHILS ABSOLUTE 0.16 K/ L 0.04-0.36 COUNT (BEAKER) (test code = 416) BASOPHILS ABSOLUTE 0.09 K/ L 0.01-0.08 H COUNT (BEAKER) (test code = 417) IMMATURE 1.90 % 0.00-1.00 H GRANULOCYTES-RELATIVE PERCENT (BEAKER) (test code = 2801) [id number] 05:54:30 Test Item Value Reference Range Interpretation Comments MAGNESIUM (BEAKER) (test code = 1.9 mg/dL 1.6-2.6 627) Erp Consultant ID - ADMINCOMPREHENSIVE METABOLIC [id number] 05:54:30 Test Item Value Reference Range Interpretation Comments TOTAL PROTEIN 5.4 gm/dL 6.0-8.3 L (BEAKER) (test code = 770) ALBUMIN (BEAKER) 2.1 g/dL 3.5-5.0 L (test code = 1145) ALKALINE 927 U/L 40-150 H PHOSPHATASE (BEAKER) (test code = 346) BILIRUBIN TOTAL 8.3 mg/dL 0.2-1.2 H (BEAKER) (test code = 377) SODIUM (BEAKER) 135 meq/L 136-145 L (test code = 381) POTASSIUM (BEAKER) 3.1 meq/L 3.5-5.1 L (test code = 379) CHLORIDE (BEAKER) 112 meq/L 98-107 H (test code = 382) CO2 (BEAKER) (test 16 meq/L 22-29 L code = 355) BLOOD UREA 9 mg/dL 7-21 NITROGEN (BEAKER) (test code = 354) CREATININE 0.64 mg/dL 0.57-1.25 (BEAKER) (test code = 358) GLUCOSE RANDOM 94 mg/dL 70-105 (BEAKER) (test code = 652) CALCIUM (BEAKER) 8.0 mg/dL 8.4-10.2 L (test code = 697) AST (SGOT) 121 U/L 5-34 H (BEAKER) (test code = 353) ALT (SGPT) 135 U/L 6-55 H (BEAKER) (test code = 347) EGFR (BEAKER) 96 Interpretatio n of eGFR (test code = 1092) mL/min/1.[address] age Description sq m Result G1 Linsey l or high >=90 G2 Mildly decreased 60-89 G3a Mildl y to moderately 45-5 9 G3b Moderately to s everely 30-44 G4 Severl y decreased 15-29 G5 Kidney failure <15Reported eGF R is based on the CKD-EPI 2020 equation that d oes not use a race coefficientEsti mated GFR is not as accur ate as Creatinine Eva acevedo in predicting glom erular filtration rate . Estimated GFR is not appl icable for dialysis patien ts Erp Consultant ID - ADMINSpecimen moderately ictericCBC W/PLT COUNT & AUTO [id number] 04:06:38 Test Item Value Reference Range Interpretation Comments WHITE BLOOD CELL COUNT (BEAKER) 11.9 K/ L 3.5-10.5 H (test code = 775) RED BLOOD CELL COUNT (BEAKER) 2.60 M/ L 3.93-5.22 L (test code = 761) HEMOGLOBIN (BEAKER) (test code = 8.4 GM/DL 11.2-15.7 L 410) HEMATOCRIT (BEAKER) (test code = 24.8 % 34.1-44.9 L 411) MEAN CORPUSCULAR VOLUME (BEAKER) 95 fL 79-95 (test code = 753) MEAN CORPUSCULAR HEMOGLOBIN 32.3 pg 25.6-32.2 H (BEAKER) (test code = 751) MEAN CORPUSCULAR HEMOGLOBIN CONC 33.9 GM/DL 32.2-35.5 (BEAKER) (test code = 752) RED CELL DISTRIBUTION WIDTH 21.1 % 11.7-14.4 H (BEAKER) (test code = 412) PLATELET COUNT (BEAKER) (test 374 K/CU MM 150-450 code = 756) MEAN PLATELET VOLUME (BEAKER) 10.1 fL 9.4-12.3 (test code = 754) NUCLEATED RED BLOOD CELLS 0 /100 WBC 0-0 (BEAKER) (test code = 413) NEUTROPHILS RELATIVE PERCENT 70 % (BEAKER) (test code = 429) LYMPHOCYTES RELATIVE PERCENT 16 % (BEAKER) (test code = 430) MONOCYTES RELATIVE PERCENT 9 % (BEAKER) (test code = 431) EOSINOPHILS RELATIVE PERCENT 1 % (BEAKER) (test code = 432) BASOPHILS RELATIVE PERCENT 1 % (BEAKER) (test code = 437) NEUTROPHILS ABSOLUTE COUNT 8.35 K/ L 1.56-6.13 H (BEAKER) (test code = 670) LYMPHOCYTES ABSOLUTE COUNT 1.94 K/ L 1.18-3.74 (BEAKER) (test code = 414) MONOCYTES ABSOLUTE COUNT (BEAKER) 1.10 K/ L 0.24-0.36 H (test code = 415) EOSINOPHILS ABSOLUTE COUNT 0.17 K/ L 0.04-0.36 (BEAKER) (test code = 416) BASOPHILS ABSOLUTE COUNT (BEAKER) 0.12 K/ L 0.01-0.08 H (test code = 417) IMMATURE GRANULOCYTES-RELATIVE 1.50 % 0.00-1.00 H PERCENT (BEAKER) (test code = 2801) COMPREHENSIVE METABOLIC [id number] 07:08:43 Test Item Value Reference Range Interpretation Comments TOTAL PROTEIN 5.1 gm/dL 6.0-8.3 L (BEAKER) (test code = 770) ALBUMIN (BEAKER) 1.9 g/dL 3.5-5.0 L (test code = 1145) ALKALINE 1020 U/L 40-150 H PHOSPHATASE (BEAKER) (test code = 346) BILIRUBIN TOTAL 9.2 mg/dL 0.2-1.2 H (BEAKER) (test code = 377) SODIUM (BEAKER) 135 meq/L 136-145 L (test code = 381) POTASSIUM (BEAKER) 3.3 meq/L 3.5-5.1 L (test code = 379) CHLORIDE (BEAKER) 110 meq/L 98-107 H (test code = 382) CO2 (BEAKER) (test 16 meq/L 22-29 L code = 355) BLOOD UREA 9 mg/dL 7-21 NITROGEN (BEAKER) (test code = 354) CREATININE 0.66 mg/dL 0.57-1.25 (BEAKER) (test code = 358) GLUCOSE RANDOM 85 mg/dL 70-105 (BEAKER) (test code = 652) CALCIUM (BEAKER) 7.9 mg/dL 8.4-10.2 L (test code = 697) AST (SGOT) 180 U/L 5-34 H (BEAKER) (test code = 353) ALT (SGPT) 163 U/L 6-55 H (BEAKER) (test code = 347) EGFR (BEAKER) 95 Interpretatio n of eGFR (test code = 1092) mL/min/1.[address] age Description sq m Result G1 Linsey l or high >=90 G2 Mildly decreased 60-89 G3a Mildl y to moderately 45-5 9 G3b Moderately to s everely 30-44 G4 Severl y decreased 15-29 G5 Kidney failure <15Reported eGF R is based on the CKD-EPI 2021 equation that d oes not use a race coefficientEsti mated GFR is not as accur ate as Creatinine Eva kristina in predicting glom erular filtration rate . Estimated GFR is not appl icable for dialysis patien ts Erp Consultant ID - MMSpecimen moderately [id number] 07:08:27 Test Item Value Reference Range Interpretation Comments MAGNESIUM (BEAKER) (test code = 1.9 mg/dL 1.6-2.6 627) Erp Consultant ID - MMCBC W/PLT COUNT & AUTO [id number] 06:38:49 Test Item Value Reference Range Interpretation Comments WHITE BLOOD CELL COUNT (BEAKER) 12.3 K/ L 3.5-10.5 H (test code = 775) RED BLOOD CELL COUNT (BEAKER) 2.71 M/ L 3.93-5.22 L (test code = 761) HEMOGLOBIN (BEAKER) (test code = 8.7 GM/DL 11.2-15.7 L 410) HEMATOCRIT (BEAKER) (test code = 25.3 % 34.1-44.9 L 411) MEAN CORPUSCULAR VOLUME (BEAKER) 93 fL 79-95 (test code = 753) MEAN CORPUSCULAR HEMOGLOBIN 32.1 pg 25.6-32.2 (BEAKER) (test code = 751) MEAN CORPUSCULAR HEMOGLOBIN CONC 34.4 GM/DL 32.2-35.5 (BEAKER) (test code = 752) RED CELL DISTRIBUTION WIDTH 20.6 % 11.7-14.4 H (BEAKER) (test code = 412) PLATELET COUNT (BEAKER) (test 361 K/CU MM 150-450 code = 756) MEAN PLATELET VOLUME (BEAKER) 10.1 fL 9.4-12.3 (test code = 754) NUCLEATED RED BLOOD CELLS 0 /100 WBC 0-0 (BEAKER) (test code = 413) NEUTROPHILS RELATIVE PERCENT 70 % (BEAKER) (test code = 429) LYMPHOCYTES RELATIVE PERCENT 16 % (BEAKER) (test code = 430) MONOCYTES RELATIVE PERCENT 10 % (BEAKER) (test code = 431) EOSINOPHILS RELATIVE PERCENT 2 % (BEAKER) (test code = 432) BASOPHILS RELATIVE PERCENT 1 % (BEAKER) (test code = 437) NEUTROPHILS ABSOLUTE COUNT 8.58 K/ L 1.56-6.13 H (BEAKER) (test code = 670) LYMPHOCYTES ABSOLUTE COUNT 1.95 K/ L 1.18-3.74 (BEAKER) (test code = 414) MONOCYTES ABSOLUTE COUNT (BEAKER) 1.18 K/ L 0.24-0.36 H (test code = 415) EOSINOPHILS ABSOLUTE COUNT 0.18 K/ L 0.04-0.36 (BEAKER) (test code = 416) BASOPHILS ABSOLUTE COUNT (BEAKER) 0.10 K/ L 0.01-0.08 H (test code = 417) IMMATURE GRANULOCYTES-RELATIVE 2.40 % 0.00-1.00 H PERCENT (BEAKER) (test code = 2801) [id number] 10:23:19 Test Item Value Reference Range Interpretation Comments Case Report (test code Medical Cytology = 104) Report Case: [id number] Authorizing Provider: Verónica Rizzo, Collected: 07/30/2022 11:14 AM Ordering Location: [address] Received: 07/30/2022 02:04 PM Service Pathologist: Ciera Rocha MD Specimen: Common Bile Duct DIAGNOSIS (test code = [id number] 3220) FuZzEwMzNcZnRuYmpcdWMx IHtccnRmMVxlcGljMTAyMD CwXH8kmOshaTh0vXrkWZCt taW9jXMkVRxqs3rxBJK1u2 jhqwyzLMKlOOxaJb3thRSq rRfbXtKrDONzWCk6hI52SX OksD7xvFDaNBc2ULNnuNGn foAbDaOmNHWxsKExwLL9RR ZfUG4olfwmOXraMEejSPKq dgB2SBUukFZqL6DtOVKwTU 8wspdhZGP5SJleKSGcVPS7 ZmNzSVKcs7Vdlst8PtYeaB FyZFxwbGFpblxmczIwIENP NZ6GBmNTSVtVTHTJX0VkBl SHV9gPJfgpUTSJPO5YODiA SuQCBwHkG6HPZYPXYZ8LPo n8PMRfnfBxXFNuG9VBPBoW KU1VSaWQB5NwEDSRLQgQBE 2KKKQeH0AONWDTOY4TYrXo MPIrxw10EGO1UfWpa8G5DS M4PUWgAOJne9tiBBGcaUUv ZzEwMzNcZnRuYmpcdWMxXG ItUuIgu1njv646mEBam2wq UROeSlZ0dEXrHHTfqWTuC7 40JTRyLCqfd1ffr2UbBAZm tDNxm3Y3KJRFxnhsiMu5lP axE65bm1I7VxyfB0atKJCk CSGzD4VmRB5gHWCjDav2YI D9SWV6RKXyCBQsJ9AhIW5w UOEazZOnEMu6d9hrkTzlZE CwCVT8y0fwOXofcgYiEE3q wq7vrQf2d5gwjePcNDDfPA DlmCSSBEDdH6NmsMvoRc0s dNh1fHwzXmknCXX2Mot9UC 5qhv66fla9zRrzDOZnmrjf BjC7MXjcGERizeqoDZe4BF gdKSOlzKW1EQBrgPOyF2Mw IYVkVX4ammd2BTH1MUuzSM QvPaU5EAIcsTLuMDAwxLzm QXiex111GNQ1AmEtOV8rY2 Gca6S4aU1cqRIyVWClhUIt BhRmWBQjsf9voKQfGYvxk2 YhJEL0avQ4wFYzcMEtGTBj GfG5XQziQC9ing70MRQkDX O7yn1nfWPpnLzkvnZjbBXd RNheR0XcDGUfg024FLBnX4 QzJAHri5W6boOiSaElHESg kST7naF8SYPuLZ8xuuruh4 ulBHcxDVvuPLZdpaN1ttB3 SQBcaYVrF4WvkJ5gAUAuDM 4dddlrs1roAHC4QAmlAPXz JOQ0MkMqUPYky0Vzuoy6Lb Pus3KwkTHhFDilI96yg210 SKQcldIxA2igsBNtvpdreD ZatvvwVAdbqzG5XVKgAMfp bqsuTTGlOUrcY8mcYlZaMT ZauHkwMQwau6KfGZByNLFt MzWxtRVtTQIdEnw6HUBagZ KxFYMzQmRqS5aqnnucBgOZ EAMxj3smM4ewmVCHnEQaG3 QgUGhvbmUgTGluZTogNzEz BBo9JV46PjXfAebtCQP3lT == COMMENT (test code = x8uizQNsPFGkiVGfORJaTZ 3051) cchpKeGWCfuTTwV6Dohfbz BIryEE6eAT9cdEnekQWfwN QuOSHeQrAib4lmg670qIPh e3aiFCICfcxnwRv0fIkeM9 1jl9S1BiyzE73xwDHzOPP6 DCPxWIOjdYBbIFDvYKC7DQ AjdYWpO2toORTcNX5hgqfe FUsoBBgxOSHnxZS2TRPiyO KiK3IlSIXhCAwqCKZvwzm4 CbXrIp5ibWOwgXuaMYmxUX JkXHBsYWluXGZzMjAgVGhl IHNwZWNpbWVuIGhhcyBvY2 Adu2uzfcPrUPrnq7MxggAk ZmBmxUcbcGJbjXZtkXq7sG VsaWFsIGNlbGxzIHdpdGgg VS7rBXQcIGFmHB5pFXnwtf AvjLwkxfCvkVYoHNgvYE8w GH9sB3LziK8wHGwxwDMdkG kzXF74LV23K8hgw9wsDcPZ dGJhDYTpqW7dpA4maqFglv AgdP54UQDpklH3VIUvXPUj e5GrkAbyjP48koGhc2SwkX LoxXdcXP5mjV4qJUDvuenp TLIgAu2tzEXgQOVrvwHkAP 0HLZXdqaJ5rtEux7d8pSG5 zZAoQqwgRIaqY4HhKDovQL J9 CPT Code(s) (test code x4mbcHIgROAmeQMyPPRsSD = 3357) cvytNwLGCvsCZxK0Uimqum PClwNT2jRH0huOixkRMptL LkAAUsZyQbg6tjb677sVUz u3rbLDQPqbualAq9kMlvM1 4da4X8PybmV29fyNOaZMU6 VSHkGBSbkVPkPOKfUKO5NZ KpbYCkI8utCKOpMZ3kpype GFxmJEklWWAnxIO1NAReeW ZhB8GxTGViQRhfWNLooiw9 HuQuWv6haDVwmJheDWlpSS JkXHBsYWluXGZzMjAgODgx KBhgEXb4TaB5QQQugz1= CLINICAL DATA (test q6jagFYrHZJeqRViPASbUG code = 3351) wmicRgVCBlsODsX6Mvyuhu PAtuEM8kCL3egBisqJHwaV GsDXGfZiRdt4svo623uJRv i6mrRUCFutlwrPi0eTcaC8 4vq7G3ZgglC99hjLWjYLL5 OATvTUShwBPcVMTtSOU8MT XdvADfH0usUMPhCN9ohjno AWhvTAsgQZAmbEA3YVRcmO DyT2QuQDEaQYloABUhsnr6 XkYcAi7eyKPvdDwmKVcfRG JkXHBsYWluXGZzMjAgNjkg iX7jSzZOULjrxLzoig4xt8 lnbmlmaWNhbnQgbWVkaWNh xSTzyEK3c3H2HYqazaWngl FdLR93etQ2oVWoUNApy2au AMFrsSLkKYVohY7gVZDzDC cdjC8saFXsNKFsmX5qCEWp FBpnuhRixAj1GQXwnPXuni S4vCFxBSBisYvoakqeGVxu SEAai59vL21tT0DuioclTp Pyg4ViT8gdeBQlT5ngE6Cj Z1wgm62eLrHZRNA6eILaYU XwC11voAXrCBPaQdBhRYLw OSticRumuI20adMgMBZcjF obAMDxqWG1QEYxf62kIY9v NYQccWD0MFZqL94fpF2rZH YygUUdIOXpeKMnWT0gOOTu zO1semGbZGKbvMfuGDX2S4 GdDXbaqWzwl73tUEWtrI0g sEVeGT6vaXM0gSheK58xO6 UuxipdFoTjt9GoY5TrL0xw s56zQUZLKwXtGSMzVKBmdW VkLlxwYXJ9 SPECIMEN SOURCE (test l8uymUSlHCCztAOmGGVvZX code = 3377) mbruQbEXEzgNRgU0Drcggd WXmpGS1pZZ0byVnlyYPbaD AaTCYhFmAxb1akv859mJPe s6xfGWRLyeltkBo7tKsjX8 9ww2I8FdhvX71lqKChCBW6 XILzKSNkbGBvYEOnJVZ9VE XqjMQtT2vrDPRxVQ0xdsxi OLfuGFkxYHHioTG8SYUoyE BtJ9JmSYBqYPbxARGxnxz0 TeZyUm8ydTEtvNngDWbwDH YoIGXgQEozAZZoZsIeY08O EX3WBAWTBWLpCENCPVNCMv CZOJkNJ1owOFF0 GROSS DESCRIPTION (test r8mzxJNgYWUslDZqBXWwIG code = [id number]) onryCaRKDkeDHqW7Lffups JJocSD5nJR1vxOsilGXpuP SmYQFbXkQkp2tib385pMZd o9knTXUVekrnbCp7hXgpB3 1hz5G1QnvuB40agADgOSY3 GFUeENJfiVEjLUUsJJI2WQ WwnTMyC2czVNGhNG8pgakz ZRreAQdxFSNshNY0TPQobE BdW6CtHYAmVEitUPMumrt8 RrWhOf8ijFOnkOamJJjfEd ohpBgfb0MngPIcENgnKUDt LUHwCMuwULMjI0VCSNMfWS T3RhE3KDFiDISRSVNoGwMk QOK6IFDMYELuMKSmRsT2Da cyNCIgTFJSIDEyMzAwMDAw MDkgXFxuaCBcXHQgMSBcXG PtTIwfrcV8r0bbPCYrcWFc GPC1RSkgqOGjGRReQGRyVH dkIuFQWiJzXjLxXUi8QAYk PHYqCYy3XPbtL4QHYHDcDE N5NMT7XAYeHlR5ICm9GYBN Bk8mKpDnFEViYXzaKSS7CI qhFHgamMJdFCkdv3HsYvSx DDUpWRllwdH9UORhpkAqpW qolB3bGbUmHcNLApCFl56p h86jEijyGJBZmCL9MBQhgx yhOGStXVKnLnScHFTcA1gm ZdCdPWPhSpPvPGVtH3lwAC MwXHBsYWluXGZzMjAgUmVj DPm9DSHsXRRxsaMybSU6dK SsbQ4uYfGxjZqhJKS1cU7j aWNoIHJlZDsgcHJlcGFyZW TsKvDbaVYij6QyavHkVVXt mZnnYbonP8nyCHOcLTOmY8 HdeTTxpP9bxdWpcCSxIXZm jY7zDg9rbNXpwO9gJLWyWM W1ELBwa18tSf5xOR4eRJQp SVS9YXVjcHMxAKG7NT0uaK nnUDRfD2BzL4OiknM2LORw cn0= MICROSCOPIC DESCRIPTION c4hcwVXuBHNpuLSaJNHlOD (test code = 3371) bwyhGoIGCbzBNhP4Rwbegp UIaqSL2xJX2ubOmweZNudE UgYTWuNlXoe1xna744oUWp x6joCEFXuryueJh9iNeoH7 3dh0D9QhaoC75nmRBvEKH8 LOFqHZHcmIUdRPCxDGV4MO IrfXAsM0ltDJViCH8mkwij IBswTAaiBXCnvJB1FWTweW MfJ5MtWDAwBVqzPJUazmv5 ZlKtOo0xrRTxdPfzHGfbQP JkXHBsYWluXGZzMjAgUGVy Dp0ymCWvErlsYGNbvMWlKR xwYXJ9 STATEMENT OF ADEQUACY Satisfactory (test code = 2757) Gross assessment was [facility] performed at ([facility], = 2777) Department of Pathology, [address] [place] [id number], Technical component was [facility] performed at ([facility], = 2776) Department of Pathology, [address] [place] [address], Professional component [facility] was performed at ([facility], code = 2779) Department of Pathology, [address] [place] [address], [facility] 10:23:19Medical Cytology Report Case: [id number] Authorizing Provider: Verónica Rizzo, Collected: 0 07/30/2022 11:14 AM Ordering Location: [address] Received: 07/30/2022 02:04 PM Service Pathologist: Ciera Rocha MD Specimen: Common Bile Duct COMMON BILE DUCT BRUSHING (CYTOSPINS ANDCELL BLOCK): -SUSPICIOUS FOR MALIGNANCY (SEE COMMENT) Signing Pathologist Direct Phone Line: [phone] signed by Ciera Rocha MD on 07/31/2022 at 10:23 AMThe specimen has occasional groups of atypical epithelial cells with enlarged and irregular nuclei and occasional prominent nucleoli. These findings are interpreted as suspicious for malignancy. Greg Mulligan MD concurs with the find ings. [id number], [id number] y.o. 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 CT with4 cm hepatic mass with intrahepatic dilatation and dilated common bile ducts and common hepatic ducts with some lymphadenopathy concerning for carcinoma, LFTs elevated.COMMON BILE DUCT BRUSHINGA. Common Bile DuctReceived 1 brush tip in 20 mls cytorich red; prepared 2 cytospins, cell block (A2) (cell block placed in formalin at 16:00 on 07/30/2022) Performed.[facility]atisfactoryB[facility], [facility], [address] [place] [id number], [facility], Department of Pathology, [address] [place] [address], [facility], [facility], [address] [place] [id number], [id number] METABOLIC [id number] 09:31:18 Test Item Value Reference Range Interpretation Comments TOTAL PROTEIN 5.2 gm/dL 6.0-8.3 L (BEAKER) (test code = 770) ALBUMIN (BEAKER) 2.0 g/dL 3.5-5.0 L (test code = 1145) ALKALINE 1240 U/L 40-150 H PHOSPHATASE (BEAKER) (test code = 346) BILIRUBIN TOTAL 13.9 mg/dL 0.2-1.2 H (BEAKER) (test code = 377) SODIUM (BEAKER) 136 meq/L 136-145 (test code = 381) POTASSIUM (BEAKER) 3.1 meq/L 3.5-5.1 L (test code = 379) CHLORIDE (BEAKER) 109 meq/L 98-107 H (test code = 382) CO2 (BEAKER) (test 17 meq/L 22-29 L code = 355) BLOOD UREA 14 mg/dL 7-21 NITROGEN (BEAKER) (test code = 354) CREATININE 0.74 mg/dL 0.57-1.25 (BEAKER) (test code = 358) GLUCOSE RANDOM 75 mg/dL 70-105 (BEAKER) (test code = 652) CALCIUM (BEAKER) 8.1 mg/dL 8.4-10.2 L (test code = 697) AST (SGOT) 345 U/L 5-34 H (BEAKER) (test code = 353) ALT (SGPT) 222 U/L 6-55 H (BEAKER) (test code = 347) EGFR (BEAKER) 88 Interpretatio n of eGFR (test code = 1092) mL/min/1.[address] age Description sq m Result G1 Linsey l or high >=90 G2 Mildly decreased 60-89 G3a Mildl y to moderately 45-5 9 G3b Moderately to s everely 30-44 G4 Severl y decreased 15-29 G5 Kidney failure <15Reported eGF R is based on the CKD-EPI 2020 equation that d oes not use a race coefficientEsti mated GFR is not as accur ate as Creatinine Eva kristina in predicting glom erular filtration rate . Estimated GFR is not appl icable for dialysis patien ts Erp Consultant ID - ADMINSpecimen markedly [id number] 09:31:17 Test Item Value Reference Range Interpretation Comments MAGNESIUM (BEAKER) (test code = 1.9 mg/dL 1.6-2.6 627) Erp Consultant ID - ADMINFL [id number] 08:10:40 [facility] : 1950 Sex: FFL ERCPCLINICAL INDICATION: biliary obstructionCOMPARISON: NoneIMPRESSION:Fluoroscopic assistance is provided for ERCP. The radiologist was notpresent during the procedure. Images are presented for interpretation atthe completion of the procedure. Please refer to the procedure reportfor more details.Number of images obtained: SixFluoroscopy time: 125.2 secondsElectronically Signed By: Tom Deras07/31/2022 08:12 CDTWorkstation Name: [id number] W/PLT COUNT & AUTO [id number] 06:06:26 Test Item Value Reference Range Interpretation Comments WHITE BLOOD CELL COUNT (BEAKER) 12.0 K/ L 3.5-10.5 H (test code = 775) RED BLOOD CELL COUNT (BEAKER) 2.87 M/ L 3.93-5.22 L (test code = 761) HEMOGLOBIN (BEAKER) (test code = 9.3 GM/DL 11.2-15.7 L 410) HEMATOCRIT (BEAKER) (test code = 27.1 % 34.1-44.9 L 411) MEAN CORPUSCULAR VOLUME (BEAKER) 94 fL 79-95 (test code = 753) MEAN CORPUSCULAR HEMOGLOBIN 32.4 pg 25.6-32.2 H (BEAKER) (test code = 751) MEAN CORPUSCULAR HEMOGLOBIN CONC 34.3 GM/DL 32.2-35.5 (BEAKER) (test code = 752) RED CELL DISTRIBUTION WIDTH 21.0 % 11.7-14.4 H (BEAKER) (test code = 412) PLATELET COUNT (BEAKER) (test 364 K/CU MM 150-450 code = 756) MEAN PLATELET VOLUME (BEAKER) 10.4 fL 9.4-12.3 (test code = 754) NUCLEATED RED BLOOD CELLS 0 /100 WBC 0-0 (BEAKER) (test code = 413) NEUTROPHILS RELATIVE PERCENT 69 % (BEAKER) (test code = 429) LYMPHOCYTES RELATIVE PERCENT 17 % (BEAKER) (test code = 430) MONOCYTES RELATIVE PERCENT 9 % (BEAKER) (test code = 431) EOSINOPHILS RELATIVE PERCENT 2 % (BEAKER) (test code = 432) BASOPHILS RELATIVE PERCENT 1 % (BEAKER) (test code = 437) NEUTROPHILS ABSOLUTE COUNT 8.24 K/ L 1.56-6.13 H (BEAKER) (test code = 670) LYMPHOCYTES ABSOLUTE COUNT 2.06 K/ L 1.18-3.74 (BEAKER) (test code = 414) MONOCYTES ABSOLUTE COUNT (BEAKER) 1.07 K/ L 0.24-0.36 H (test code = 415) EOSINOPHILS ABSOLUTE COUNT 0.19 K/ L 0.04-0.36 (BEAKER) (test code = 416) BASOPHILS ABSOLUTE COUNT (BEAKER) 0.08 K/ L 0.01-0.08 (test code = 417) IMMATURE GRANULOCYTES-RELATIVE 2.70 % 0.00-1.00 H PERCENT (BEAKER) (test code = 2801) [id number] 16:01:03 Test Item Value Reference Range Interpretation Comments Cytology (test code = See Separate Report [id number]) [facility] [id number] 16:01:03 Test Item Value Reference Range Interpretation Comments CYTOLOGY RESULT POINTER See Separate Report (BEAKER) (test code = 2629) COMPREHENSIVE METABOLIC [id number] 08:37:06 Test Item Value Reference Range Interpretation Comments TOTAL PROTEIN 5.3 gm/dL 6.0-8.3 L (BEAKER) (test code = 770) ALBUMIN (BEAKER) 2.1 g/dL 3.5-5.0 L (test code = 1145) ALKALINE 1438 U/L 40-150 H PHOSPHATASE (BEAKER) (test code = 346) BILIRUBIN TOTAL 20.3 mg/dL 0.2-1.2 H (BEAKER) (test code = 377) SODIUM (BEAKER) 137 meq/L 136-145 (test code = 381) POTASSIUM (BEAKER) 3.0 meq/L 3.5-5.1 L (test code = 379) CHLORIDE (BEAKER) 107 meq/L 98-107 (test code = 382) CO2 (BEAKER) (test 19 meq/L 22-29 L code = 355) BLOOD UREA 12 mg/dL 7-21 NITROGEN (BEAKER) (test code = 354) CREATININE 0.69 mg/dL 0.57-1.25 (BEAKER) (test code = 358) GLUCOSE RANDOM 89 mg/dL 70-105 (BEAKER) (test code = 652) CALCIUM (BEAKER) 8.7 mg/dL 8.4-10.2 (test code = 697) AST (SGOT) 520 U/L 5-34 H (BEAKER) (test code = 353) ALT (SGPT) 260 U/L 6-55 H (BEAKER) (test code = 347) EGFR (BEAKER) 94 Interpretatio n of eGFR (test code = 1092) mL/min/1.[address] age Description sq m Result G1 Linsey l or high >=90 G2 Mildly decreased 60-89 G3a Mildl y to moderately 45-5 9 G3b Moderately to s everely 30-44 G4 Severl y decreased 15-29 G5 Kidney failure <15Reported eGF R is based on the CKD-EPI 2020 equation that d oes not use a race coefficientEsti mated GFR is not as accur ate as Creatinine Eva kristina in predicting glom erular filtration rate . Estimated GFR is not appl icable for dialysis patien ts Erp Consultant ID - EDSpecimen markedly [id number] 08:33:51 Test Item Value Reference Range Interpretation Comments MAGNESIUM (BEAKER) (test code = 2.0 mg/dL 1.6-2.6 627) Erp Consultant ID - EDPROTHROMBIN TIME/[id number] 06:36:58 Test Item Value Reference Range Interpretation Comments PROTIME (BEAKER) (test code = 16.6 seconds 11.9-14.2 H 759) INR (BEAKER) (test code = 370) 1.37 <=5.90 RECOMMENDED COUMADIN/WARFARIN INR THERAPY RANGESSTANDARD DOSE: 2.0 - 3.0 Includes: PROPHYLAXIS for venous thrombosis, systemic embolization; TREATMENT for venous thrombosis and/or pulmonary embolus.HIGH RISK: Target INR is 2.5-3.5 for patients with mechanical heart valves.CBC (HEMOGRAM ONLY)2022-07-30 06:11:15 Test Item Value Reference Range Interpretation Comments WHITE BLOOD CELL COUNT (BEAKER) 14.3 K/ L 3.5-10.5 H (test code = 775) RED BLOOD CELL COUNT (BEAKER) 2.71 M/ L 3.93-5.22 L (test code = 761) HEMOGLOBIN (BEAKER) (test code = 8.8 GM/DL 11.2-15.7 L 410) HEMATOCRIT (BEAKER) (test code = 26.2 % 34.1-44.9 L 411) MEAN CORPUSCULAR VOLUME (BEAKER) 97 fL 79-95 H (test code = 753) MEAN CORPUSCULAR HEMOGLOBIN 32.5 pg 25.6-32.2 H (BEAKER) (test code = 751) MEAN CORPUSCULAR HEMOGLOBIN CONC 33.6 GM/DL 32.2-35.5 (BEAKER) (test code = 752) RED CELL DISTRIBUTION WIDTH 21.8 % 11.7-14.4 H (BEAKER) (test code = 412) PLATELET COUNT (BEAKER) (test 373 K/CU MM 150-450 code = 756) MEAN PLATELET VOLUME (BEAKER) 10.4 fL 9.4-12.3 (test code = 754) NUCLEATED RED BLOOD CELLS 0 /100 WBC 0-0 (BEAKER) (test code = 413) CT ABDOMEN/PELVIS WITH & WITHOUT IV [id number] 19:09:45 [facility] CENTERName: OSMIN BURGER : 1950 Sex: FTECHNIQUE: CT of the chest WITH intravenous contrast and abdomen andpelvis WITHOUT and WITH intravenous contrast and WITHOUT oral contrast.Dose modulation, iterative reconstruction, and/or weight-basedadjustment of the mA/kV was utilized to reduce the radiation dose to aslow as reasonably achievable.INDICATION: Hepatobiliary cancer, stagingPossible cholangiocarcinoma.COMPARISON: Outside facility CT from 07/28/2022.FINDINGS:LINES/TUBES: None.LUNGS AND AIRWAYS: A calcified granuloma in the lingula measures 0.3 cm.Incidental azygos fissure. Mild bibasilar atelectasis. There are greaterthan 30 pulmonary nodules with examples of the largest as follows:* A right upper lobe pulmonary nodule on axial image 24 measures 1 cm.* A right upper lobe pulmonary nodule on axial image 37 measures 0.9cm.* A right lower lobe pulmonary nodule on axial image 29 measures 0.9cm.PLEURA: Trace bilateral pleural effusions.HEART AND MEDIASTINUM: A right thyroid nodule measures 1 cm and islikely clinically insignificant. No f ollow-up imaging is recommended forthis finding. No significant mediastinal, hilar, or axillarylymphadenopathy. The heart and pericardium are within normal limits.Mild calcification of the descending thoracic aorta.HEPATOBILIARY: The gallbladder contains sludge and multiple stones.There is masslike gallbladder wall thickening along the undersurface ofthe gallbladder which extends into the liver and measures 3.8 x 5.8 x 4cm and extends into segment IV the liver. In addition, some of thisconglomerate soft tissue appears to extend into the brittany hepatis asbest seen on axial image 58 where it measures 3 x 3.6 cm and encases andnarrows the main portal vein, encases and narrows the common hepaticartery, and obstructs the common hepatic duct. The common bile ductinferior to this region of obstruction contains hyperdense materialwhich does not appear to enhance.There is marked intrahepatic biliary ductal dilation due to theobstructing mass. The distal common bile duct is filled with hyperdensematerial and measures 1.9 cm in diameter.SPLEEN: No splenomegaly.PANCREAS: No focal masses or ductal dilatation.ADRENALS: No adrenal nodules.KIDNEYS/URETERS: Marked right hydronephrosis with retained contrast fro mthe prior examination. Moderate left hydronephrosis with retainedcontrast (20 to extend) from the prior examination.PELVIC ORGANS/BLADDER: A mass in the posterior uterine fundus measures3.2 cm and is most likely a leiomyoma. Additional likely leiomyomas inthe lower uterine segment measures 2 cm and 0.8 cm. There is markedpelvic floor descent with a large cystocele which is only partiallyvisualized.PERITONEUM/RETROPERITONEUM: There are a few small supraumbilicalhernias. One of these hernias likely contains a necrotic lymph node oromental metastasis. Small-volume ascites with marked mesenteric edema. Asmall right indirect internal hernia contains ascites.LYMPH NODES: There is a questionable necrotic lymph node or old omentalmetastasis which extends through a supraumbilical hernia as seen onaxial image 77. Metastatic retroperitoneal lymph nodes are conglomeratearound the aorta as best seen on axial image 70. This measures up to 2.1cm in thickness and 5.8 cm in width.VESSELS: Moderate aortoiliac atherosclerotic calcification. There isencasement and narrowing of the common hepatic artery. There isencasement and severe narrowing of the main portal vein with nearocclusion.GI TRACT: The gastric fitz diffusely thickened.BONES AND SOFT TISSUES: Moderate facet changes at L4-L5.IMPRESSION:1. A mass which appears to originate from the inferior surface of thegallbladder extends into segment V of the liver and into the portahepatis. The brittany hepatis portion of the mass obstructs and essentiallyoccludes the common hepatic duct with marked intrahepatic biliary ductaldilation. The brittany hepatis mass encases and narrows both the commonhepatic artery and main portal vein. There are greater than 30 lungmetastases and extensive retroperitoneal metastatic lymphadenopathy.2. The distal common bile duct isexpanded with either hemorrhage orsludge.3. A peripherally enhancing structure within a supraumbilical hernia isindeterminate and could be an area of ongoing fat necrosis or apartially necrotic metastatic lymph node or omental metastasis.4. There is small volume ascites with marked mesenteric edema. Theascites and mesenteric edema is most likely due to the severe mainportal vein narrowing by the mass. The gastric wall thickening isnonspecific and could be due to gastritis, but portal gastropathy isalso high on the differential.5. The marked pelvic floor descent results in severe right and moderateleft hydronephrosis with a large, partially visualized cystocele.CT CHEST WITH IV [id number] 19:09:45 [facility] : 1950 Sex: FTECHNIQUE: CT of the chest WITH intravenous contrast and abdomen andpelvis WITHOUT and WITH intravenous contrast and WITHOUT oral contrast.Dose modulation, iterative reconstruction, and/or weight-basedadjustment of the mA/kV was utilized to reduce the radiation dose to aslow as reasonably achievable.INDICATION: Hepatobiliary cancer, stagingPossible cholangiocarcinoma.COMPARISON: Outside facility CT from 07/28/2022.FINDINGS:LINES/TUBES: None.LUNGS AND AIRWAYS: A calcified granuloma in the lingula measures 0.3 cm.Incidental azygos fissure. Mild bibasilar atelectasis. There are greaterthan 30 pulmonary nodules with examples of the largest as follows:* A right upper lobe pulmonary nodule on axial image 24 measures 1 cm.* A right upper lobe pulmonary nodule on axial image 37 measures 0.9cm.* A right lower lobe pulmonary nodule on axial image 29 measures 0.9cm.PLEURA: Trace bilateral pleural effusions.HEART AND MEDIASTINUM: A right thyroid nodule measures 1 cm and islikely clinically insignificant. No f ollow-up imaging is recommended forthis finding. No significant mediastinal, hilar, or axillarylymphadenopathy. The heart and pericardium are within normal limits.Mild calcification of the descending thoracic aorta.HEPATOBILIARY: The gallbladder contains sludge and multiple stones.There is masslike gallbladder wall thickening along the undersurface ofthe gallbladder which extends into the liver and measures 3.8 x 5.8 x 4cm and extends into segment IV the liver. In addition, some of thisconglomerate soft tissue appears to extend into the brittany hepatis asbest seen on axial image 58 where it measures 3 x 3.6 cm and encases andnarrows the main portal vein, encases and narrows the common hepaticartery, and obstructs the common hepatic duct. The common bile ductinferior to this region of obstruction contains hyperdense materialwhich does not appear to enhance.There is marked intrahepatic biliary ductal dilation due to theobstructing mass. The distal common bile duct is filled with hyperdensematerial and measures 1.9 cm in diameter.SPLEEN: No splenomegaly.PANCREAS: No focal masses or ductal dilatation.ADRENALS: No adrenal nodules.KIDNEYS/URETERS: Marked right hydronephrosis with retained contrast fro mthe prior examination. Moderate left hydronephrosis with retainedcontrast (20 to extend) from the prior examination.PELVIC ORGANS/BLADDER: A mass in the posterior uterine fundus measures3.2 cm and is most likely a leiomyoma. Additional likely leiomyomas inthe lower uterine segment measures 2 cm and 0.8 cm. There is markedpelvic floor descent with a large cystocele which is only partiallyvisualized.PERITONEUM/RETROPERITONEUM: There are a few small supraumbilicalhernias. One of these hernias likely contains a necrotic lymph node oromental metastasis. Small-volume ascites with marked mesenteric edema. Asmall right indirect internal hernia contains ascites.LYMPH NODES: There is a questionable necrotic lymph node or old omentalmetastasis which extends through a supraumbilical hernia as seen onaxial image 77. Metastatic retroperitoneal lymph nodes are conglomeratearound the aorta as best seen on axial image 70. This measures up to 2.1cm in thickness and 5.8 cm in width.VESSELS: Moderate aortoiliac atherosclerotic calcification. There isencasement and narrowing of the common hepatic artery. There isencasement and severe narrowing of the main portal vein with nearocclusion.GI TRACT: The gastric fitz diffusely thickened.BONES AND SOFT TISSUES: Moderate facet changes at L4-L5.IMPRESSION:1. A mass which appears to originate from the inferior surface of thegallbladder extends into segment V of the liver and into the portahepatis. The brittany hepatis portion of the mass obstructs and essentiallyoccludes the common hepatic duct with marked intrahepatic biliary ductaldilation. The brittany hepatis mass encases and narrows both the commonhepatic artery and main portal vein. There are greater than 30 lungmetastases and extensive retroperitoneal metastatic lymphadenopathy.2. The distal common bile duct isexpanded with either hemorrhage orsludge.3. A peripherally enhancing structure within a supraumbilical hernia isindeterminate and could be an area of ongoing fat necrosis or apartially necrotic metastatic lymph node or omental metastasis.4. There is small volume ascites with marked mesenteric edema. Theascites and mesenteric edema is most likely due to the severe mainportal vein narrowing by the mass. The gastric wall thickening isnonspecific and could be due to gastritis, but portal gastropathy isalso high on the differential.5. The marked pelvic floor descent results in severe right and moderateleft hydronephrosis with a large, partially visualized cystocele.CARCINOEMBRYONIC ANTIGEN (CEA)2022-07-29 16:15:59 Test Item Value Reference Range Interpretation Comments CARCINOEMBRYONIC ANTIGEN (BEAKER) 3.8 ng/mL 0.0-5.0 (test code = 685) Erp Consultant ID - [id number] 15:52:55 Test Item Value Reference Range Interpretation Comments PREALBUMIN (BEAKER) (test code = 586) 5 mg/dL 14-45 L Erp Consultant ID - MMXR CHEST 1 VIEW PORTABLE / [id number] 13:52:58 [facility] CENTERName: OSMIN BURGER : 1950 Sex: FINDICATION: Routine evalCOMPARISON: NoneTECHNIQUE: Single frontal view of the chest.FINDINGS: Lines, tubes, and devices: None.Lungs and pleura: Scattered linear atelectasis is present. Low lungvolumes with perivascular crowding. No pneumothorax.Heart and mediastinum: Normal heart size. Unremarkable mediastinalcontours.Osseous structures: No acute abnormality.Other: None.IMPRESSION:1. No acute intrathor acic abnormality.2. Low lung volumes with perivascular crowding.HEMOGLOBIN A1C 2022-07-29 13:06:38 Test Item Value Reference Range Interpretation Comments HEMOGLOBIN A1C 4.6 % See_Comment [Automated m essage] ELECTROPHORESIS (BEAKER) The system which (test code = 3811) generated this result transmitted ref erence range: <=5.6%. The reference range was not used to int erpret this result as normal/abnormal . "The A1c is measured using a NGSP-certified method. HbA1c value equal to or greater than 6.5% as thediagnosis cutoff for diabetes. An HbA1c value of 5.7- 6.4% indicates increased risk for diabetes (prediabetes)."Erp Consultant ID - ADMOperator ID - ADMHEPATIC FUNCTION [id number] 06:21:39 Test Item Value Reference Range Interpretation Comments TOTAL PROTEIN (BEAKER) (test code 6.2 gm/dL 6.0-8.3 = 770) ALBUMIN (BEAKER) (test code = 2.4 g/dL 3.5-5.0 L 1145) BILIRUBIN TOTAL (BEAKER) (test 24.4 mg/dL 0.2-1.2 H code = 377) BILIRUBIN DIRECT (BEAKER) (test 18.2 mg/dL 0.1-0.5 H code = 706) ALKALINE PHOSPHATASE (BEAKER) 1645 U/L 40-150 H (test code = 346) AST (SGOT) (BEAKER) (test code = 506 U/L 5-34 H 353) ALT (SGPT) (BEAKER) (test code = 248 U/L 6-55 H 347) Erp Consultant ID - LC Harrisator ID Elina Ritter markedly ictericLIPID PANEL 2022-07-29 06:21:39 Test Item Value Reference Range Interpretation Comments TRIGLYCERIDES (BEAKER) (test code = 142 mg/dL 540) CHOLESTEROL (BEAKER) (test code = 544 mg/dL 631) HDL CHOLESTEROL (BEAKER) (test code 13 mg/dL = 976) LDL CHOLESTEROL CALCULATED (BEAKER) 503 mg/dL (test code = 633) Triglyceride Reference Range: Low Risk <150 Borderline 150-199 High Risk 200- 499 Very High Risk >=500Cholesterol Reference Range: Low Risk <200 Borderline 200-239 High Risk >240HDL Cholesterol Reference Range: Low Risk >=60 High Risk <40LDL Cholesterol Reference Range: Optimal <100 Near Optimal 100-129 Borderline 130-159 High 160-189 Very High >=190 Erp Consultant ID - LC Ritter markedly ictericBASIC METABOLIC [id number] 06:18:11 Test Item Value Reference Range Interpretation Comments SODIUM (BEAKER) 138 meq/L 136-145 (test code = 381) POTASSIUM 3.2 meq/L 3.5-5.1 L (BEAKER) (test code = 379) CHLORIDE (BEAKER) 104 meq/L 98-107 (test code = 382) CO2 (BEAKER) 20 meq/L 22-29 L (test code = 355) BLOOD UREA 11 mg/dL 7-21 NITROGEN (BEAKER) (test code = 354) CREATININE 0.72 mg/dL 0.57-1.25 (BEAKER) (test code = 358) GLUCOSE RANDOM 70 mg/dL 70-105 (BEAKER) (test code = 652) CALCIUM (BEAKER) 9.1 mg/dL 8.4-10.2 (test code = 697) EGFR (BEAKER) 90 Interpretatio n of eGFR (test code = mL/min/1.73 values Stage De scription 1092) sq m Result G1 Linsey l or high >=90 G2 Mildly decreased 60-89 G3a Mildl y to moderately 45-5 9 G3b Moderately to s everely 30-44 G4 Severl y decreased 15-29 G5 Kidney failure <15Reported eGF R is based on the CKD-EPI 2020 equation that d oes not use a race coefficientEsti mated GFR is not as accur ate as Creatinine Eva kristina in predicting glom erular filtration rate . Estimated GFR is not appl icable for dialysis patien ts Erp Consultant JUNIOR PLATT WSpecimen markedly [id number] 06:18:10 Test Item Value Reference Range Interpretation Comments MAGNESIUM (BEAKER) (test code = 2.2 mg/dL 1.6-2.6 627) Erp Consultant JUNIOR PLATT [id number] 06:18:10 Test Item Value Reference Range Interpretation Comments PHOSPHORUS (BEAKER) (test code = 2.8 mg/dL 2.3-4.7 604) Erp Consultant JUNIOR SWEETROTHROMBIN TIME/[id number] 04:49:58 Test Item Value Reference Range Interpretation Comments PROTIME (BEAKER) (test code = 17.0 seconds 11.9-14.2 H 759) INR (BEAKER) (test code = 370) 1.47 <=5.90 RECOMMENDED COUMADIN/WARFARIN INR THERAPY RANGESSTANDARD DOSE: 2.0 - 3.0 Includes: PROPHYLAXIS for venous thrombosis, systemic embolization; TREATMENT for venous thrombosis and/or pulmonary embolus.HIGH RISK: Target INR is 2.5-3.5 for patients with mechanical heart valves.CBC W/PLT COUNT & AUTO [id number] 04:39:51 Test Item Value Reference Range Interpretation Comments WHITE BLOOD CELL COUNT (BEAKER) 14.6 K/ L 3.5-10.5 H (test code = 775) RED BLOOD CELL COUNT (BEAKER) 2.95 M/ L 3.93-5.22 L (test code = 761) HEMOGLOBIN (BEAKER) (test code = 9.5 GM/DL 11.2-15.7 L 410) HEMATOCRIT (BEAKER) (test code = 28.0 % 34.1-44.9 L 411) MEAN CORPUSCULAR VOLUME (BEAKER) 95 fL 79-95 (test code = 753) MEAN CORPUSCULAR HEMOGLOBIN 32.2 pg 25.6-32.2 (BEAKER) (test code = 751) MEAN CORPUSCULAR HEMOGLOBIN CONC 33.9 GM/DL 32.2-35.5 (BEAKER) (test code = 752) RED CELL DISTRIBUTION WIDTH 21.5 % 11.7-14.4 H (BEAKER) (test code = 412) PLATELET COUNT (BEAKER) (test 391 K/CU MM 150-450 code = 756) MEAN PLATELET VOLUME (BEAKER) 10.9 fL 9.4-12.3 (test code = 754) NUCLEATED RED BLOOD CELLS 0 /100 WBC 0-0 (BEAKER) (test code = 413) NEUTROPHILS RELATIVE PERCENT 78 % (BEAKER) (test code = 429) LYMPHOCYTES RELATIVE PERCENT 11 % (BEAKER) (test code = 430) MONOCYTES RELATIVE PERCENT 9 % (BEAKER) (test code = 431) EOSINOPHILS RELATIVE PERCENT 0 % (BEAKER) (test code = 432) BASOPHILS RELATIVE PERCENT 1 % (BEAKER) (test code = 437) NEUTROPHILS ABSOLUTE COUNT 11.38 K/ L 1.56-6.13 H (BEAKER) (test code = 670) LYMPHOCYTES ABSOLUTE COUNT 1.60 K/ L 1.18-3.74 (BEAKER) (test code = 414) MONOCYTES ABSOLUTE COUNT (BEAKER) 1.29 K/ L 0.24-0.36 H (test code = 415) EOSINOPHILS ABSOLUTE COUNT 0.02 K/ L 0.04-0.36 L (BEAKER) (test code = 416) BASOPHILS ABSOLUTE COUNT (BEAKER) 0.10 K/ L 0.01-0.08 H (test code = 417) IMMATURE GRANULOCYTES-RELATIVE 1.30 % 0.00-1.00 H PERCENT (BEAKER) (test code = 3587)
--- NOTE | 2022-08-11 22:14 | RAD REPORT ---
EXAM DESCRIPTION: [facility] Single View08/11/2022 10:05 pm CLINICAL HISTORY: Fever COMPARISON: none FINDINGS: Mild patchy bibasilar lung opacities may represent atelectasis, less likely pneumonia Bilateral pulmonary nodules. The heart is normal size
[2022-08-11 22:17] LABS: Absolute Lymphocytes (CBC) 0.7 K/uL (0.7-4.9); Hematocrit 27.9 % (36.0-45.0); Lymphocytes % 4.5 % (15.3-44.8); MCV 99.5 fL (80-100); MPV 9.2 fL (7.6-11.3)
[2022-08-11 22:34] LABS: Albumin 1.7 g/dL (3.4-5.0); Bilirubin Total 4.5 mg/dL (0.2-1.0)
[2022-08-11 22:49] LABS: Potassium 2.3 mEq/L (3.5-5.1)
[2022-08-11 22:54] LABS: Blood Morphology Comment NOTED (NOT SEEN); Burr Cells 2+; Platelet Estimate ADEQ
[2022-08-11] MEDS ORDERED: NA CHLORIDE 0.9% 250 ML ONE ×2 (23:50→23:52)
[2022-08-11] MEDS ORDERED: KCL 20 MEQ/100 mL IVPB 100 ML IV ONE (23:50)
[2022-08-12 00:34] LABS: Protime INR 1.47
[2022-08-12] MEDS ORDERED: NA CHLORIDE 0.9% 100 ML ONE ×2 (01:38→03:08)
--- NOTE | 2022-08-12 02:33 | ER ---
Nurse's Notes [facility] Name: Leonie Ferreira Age: 71 yrs Sex: Female : 1950 Arrival Date: 08/11/2022 Time: 20:09 Bed 5 Private MD: Diagnosis: Sepsis, unspecified organism Presentation: 08/11 21:38 Chief complaint: Patient states: I was in the hospital in [place] for abdominal pain kd3 and diarrhea and possible carcination of the biliary tract and she was discharged last Thursday and today she had a temperature of 102.9. I was tired yesterday and i just feel bad. Coronavirus screen: Vaccine status: Patient reports being unvaccinated. Ebola Screen: No symptoms or risks identified at this time. Initial Sepsis Screen: Does the patient meet any 2 criteria? HR > 90 bpm. Does the patient have a suspected source of infection? No. Patient's initial sepsis screen is negative. Risk Assessment: Do you want to hurt yourself or someone else? Patient reports no desire to harm self or others. Onset of symptoms was August 11, 2022. 21:38 Method Of Arrival: Wheelchair kd3 21:38 Acuity: PEGGY 3 kd3 Triage Assessment: 21:42 General: Appears in no apparent distress. Behavior is calm, cooperative. Pain: Denies kd3 pain. Neuro: Level of Consciousness is awake, alert, obeys commands, Oriented to person, place, time, situation. Respiratory: Airway is patent Trachea midline Respiratory effort is even, unlabored, Respiratory pattern is regular, symmetrical. Historical: - Allergies: 08/12 00:11 No Known Allergies; kl - Home Meds: 03:49 None [Active]; kl - PMHx: 03:49 prolapsed bladder; kl - PSHx: 00:11 inguinal hernia; biliary stent; kl - Immunization history:: Adult Immunizations up to date. - Social history:: Smoking status: Patient denies any tobacco usage or history of. Screenin/26 23:07 [facility] ED Fall Risk Assessment (Adult) History of falling in the last 3 months, kl including since admission No falls in past 3 months (0 pts) Confusion or Disorientation No (0 pts) Intoxicated or Sedated No (0 pts) Impaired Gait Yes (1 pt) Mobility Assist Device Used Yes (1 pt) Altered Elimination No (0 pt) Score/Fall Risk Level 0 - 2 = Low Risk Oriented to surroundings, Maintained a safe environment. Abuse screen: Denies threats or abuse. Nutritional screening: No deficits noted. Tuberculosis screening: No symptoms or risk factors identified. Assessment: 21:30 General: Appears in no apparent distress. Behavior is calm, cooperative. Pain: Denies kl pain. Neuro: No deficits noted. Cardiovascular: No deficits noted. Respiratory: No deficits noted. GI: Abdomen is distended. : No deficits noted. No signs and/or symptoms were reported regarding the genitourinary system. EENT: Sclera/Cornea yellow. Musculoskeletal: Swelling present in right leg and left leg. 22:45 Reassessment: pt reports recent weight loss of approx 25 pounds with no known cause. 08/12 03:17 Reassessment: Patient appears in no apparent distress at this time. Patient is alert, kl oriented x 3, equal unlabored respirations, skin warm/dry/pink. Patient states feeling better. Patient states symptoms have improved. 05:34 Reassessment: Patient appears in no apparent distress at this time. Patient is alert, kl oriented x 3, equal unlabored respirations, skin warm/dry/pink. Patient states symptoms have improved. 07:05 Reassessment: Patient appears in no apparent distress at this time. Patient and/or db family updated on plan of care and expected duration. Pain level reassessed. Patient is alert, oriented x 3, equal unlabored respirations, skin warm/dry/pink. patient is sleeping. 08:39 Reassessment: Patient appears in no apparent distress at this time. Patient and/or db family updated on plan of care and expected duration. Pain level reassessed. Patient is alert, oriented x 3, equal unlabored respirations, skin warm/dry/pink. patient transported via EMS. patient brief changed prior to transferring to EMS stretcher. Vital Signs: 08/11 21:35 BP 112 / 53; Pulse 106; Resp 19; Pulse Ox 98% on R/A; kd3 21:38 Temp 99.1(O); kd3 21:38 Weight 61.69 kg; Height 5 ft. 6 in. ; kd3 08/12 00:45 BP 120 / 62; Pulse 58; Resp 17; Pulse Ox 100% on R/A; kl 03:18 BP 132 / 85; Pulse 74; Resp 18; Pulse Ox 100% ; kl 05:34 BP 113 / 77; Pulse 82; Resp 16; Temp 98.8(O); Pulse Ox 99% ; kl 06:29 BP 133 / 67; Pulse 90; Pulse Ox 98% on R/A; kl 07:30 BP 102 / 54; Pulse 95; Resp 16; Pulse Ox 98% on R/A; db 08:00 BP 105 / 49; Pulse 97; Resp 16; Pulse Ox 99% ; db 08/11 21:38 Body Mass Index 21.95 (61.69 kg, 167.64 cm) kd3 ED Course: 08/11 20:14 Patient arrived in ED. cc5 21:17 César Moura PA is PHCP. cp 21:17 Erasmo Florez MD is Attending Physician. cp 21:41 Triage completed. kd3 21:42 Arm band placed on right wrist. kd3 21:43 Attending Physician role handed off by Erasmo Florez MD jaja 21:43 César Hunt MD is Attending Physician. jaja 22:06 Blood Culture Adult (2) Sent. kl 22:06 CBC with Diff Sent. kl 22:06 CMP Sent. kl 22:06 Lactate w/ 2H reflex if indic. Sent. kl 22:06 Protime (+inr) Sent. kl 22:06 Ptt, Activated Sent. kl 22:07 Chest Single View XRAY In Process Unspecified. EDMS 08/12 00:07 CT Chest, Abdomen, Pelvis - W/Contrast In Process Unspecified. EDMS 01:[address] contact to [facility]. Spoke with Sharlene Holm RN TC. 1 03:03 MEGAN Diez called back from [facility] and stated that she wanted a 1 repeated lactate before continuing transfer process. 03:42 Urinalysis w/ reflexes Sent. bc6 03:49 Called the transfer center back regarding repeat lac. Spoke to Sharlene at [place] [address] transfer center at [phone]. 03:[address] Francisco Gupta at [facility]; [place] 15 bed 1539. 1 04:[address] [facility]; [place] 15 bed 1539 by MEGAN Diez. ah1 05:36 Contacted [facility], they stated that they had no trucks available. 1 05:38 Contacted [facility] ambulance. stated their ETA would be around 830 am. 1 06:29 No apparent distress. Resting quietly. Appears to be sleeping. kl 07:45 Patient has correct armband on for positive identification. ph 08:26 Zenia Cyr, RN is Primary Nurse. db 08:39 Pulse ox on. NIBP on. Warm blanket given. db 08:39 No provider procedures requiring assistance completed. Patient transferred, IV remains db in place. Administered Medications: 08/11 23:04 Not Given (Physician Discretion): NS 0.9% IV 500 ml IV at 500 ml/hr continuous 08/12 00:07 Drug: Potassium Chloride IV 20 mEq Route: IV; Rate: calculated rate; Site: right kl antecubital; 00:07 Drug: NS 0.9% IV 250 ml Route: IV; Rate: bolus; Site: right antecubital; kl 03:03 Drug: Potassium PO Effervescent Tablet 50 mEq Route: PO; kl 03:38 Drug: Piperacillin-Tazobactam IVPB 3.375 grams Route: IVPB; Infused Over: 60 mins; kl Site: right antecubital; Medication: 08/11 23:08 VIS not applicable for this client. Outcome: 08/12 02:32 ER care complete, transfer ordered by . cp 08:39 Transferred by ground EMS Transfer form completed. db 08:39 Condition: stable 08:39 Instructed on the need for transfer. 08:40 Patient left the ED. db Signatures: Dispatcher [employer] EDMS Pat Urban RN RN kl Anderson, Corey, MD MD cha Hall, Patricia RN RN César Drake PA PA cp Doucette, Kyli, RN RN kd3 Zenia Cyr, RN RN Huong Smith cc5 Graciela Orozco [facility] Chalo Myers [facility] Corrections: (The following items were deleted from the chart) 08/11 23:08 21:41 Allergies: No Known Allergies; kd3 kl 23:08 21:41 PSHx: inguinal hernia repair; kd3 kl
--- NOTE | 2022-08-12 02:33 | EDPHYS ---
Physician Documentation [facility] Name: Leonie Ferreira Age: 71 yrs Sex: Female : 1950 Arrival Date: 08/11/2022 Time: 20:09 Bed 5 Private MD: ED Physician César Hunt HPI: 08/11 21:50 This 71 yrs old Black Female presents to ER via Wheelchair with complaints of Fever, cp Feet Swelling. 21:50 The patient reports fever, that was measured at 102.9 degrees Fahrenheit. Onset: The cp symptoms/episode began/occurred today. Associated signs and symptoms: Pertinent positives: fatigue, weakness, Pertinent negatives: altered mental status, cough, headache. Historical: - Allergies: 08/12 00:11 No Known Allergies; kl - Home Meds: 03:49 None [Active]; kl - PMHx: 03:49 prolapsed bladder; kl - PSHx: 00:11 inguinal hernia; biliary stent; kl - Immunization history:: Adult Immunizations up to date. - Social history:: Smoking status: Patient denies any tobacco usage or history of. ROS: 08/11 21:55 Constitutional: Negative for fever, poor PO intake. cp 21:55 Eyes: Negative for injury, pain, redness, and discharge. cp 21:55 Cardiovascular: Negative for chest pain. 21:55 Respiratory: Positive for shortness of breath, on exertion. slight cough, Negative for wheezing. 21:55 Abdomen/GI: Negative for abdominal pain, vomiting, diarrhea, constipation. 21:55 Neuro: Positive for weakness, Negative for altered mental status, headache. 21:55 All other systems are negative. Exam: 22:00 Head/Face: Normocephalic, atraumatic. cp 22:00 Constitutional: The patient appears in no acute distress, alert, awake, non-diaphoretic, non-toxic, well developed, well nourished. 22:00 Eyes: Periorbital structures: appear normal, Conjunctiva: normal, no exudate, no injection, Sclera: no appreciated abnormality, Lids and lashes: appear normal, bilaterally. 22:00 ENT: External ear(s): are unremarkable, Nose: is normal, Mouth: Lips: moist, Oral mucosa: moist, Posterior pharynx: Airway: no evidence of obstruction, patent. 22:00 Chest/axilla: Inspection: normal. 22:00 Cardiovascular: Rate: tachycardic, Rhythm: regular. 22:00 Respiratory: the patient does not display signs of respiratory distress, Respirations: normal, no use of accessory muscles, no retractions, labored breathing, is not present, Breath sounds: are clear throughout, no decreased breath sounds, no stridor, no wheezing. 22:00 Abdomen/GI: Inspection: distension, that is mild, Bowel sounds: active, all quadrants, Palpation: soft, in all quadrants, mild abdominal tenderness, in all quadrants. 22:00 Neuro: Orientation: to person, place \T\ time. Mentation: is normal, Motor: moves all fours, strength is normal. 08/12 04:07 ECG was reviewed by the Attending Physician. [facility] Vital Signs: 08/11 21:35 BP 112 / 53; Pulse 106; Resp 19; Pulse Ox 98% on R/A; kd3 21:38 Temp 99.1(O); kd3 21:38 Weight 61.69 kg; Height 5 ft. 6 in. ; 3 08/12 00:45 BP 120 / 62; Pulse 58; Resp 17; Pulse Ox 100% on R/A; kl 03:18 BP 132 / 85; Pulse 74; Resp 18; Pulse Ox 100% ; kl 05:34 BP 113 / 77; Pulse 82; Resp 16; Temp 98.8(O); Pulse Ox 99% ; kl 06:29 BP 133 / 67; Pulse 90; Pulse Ox 98% on R/A; kl 07:30 BP 102 / 54; Pulse 95; Resp 16; Pulse Ox 98% on R/A; db 08:00 BP 105 / 49; Pulse 97; Resp 16; Pulse Ox 99% ; db 08/11 21:38 Body Mass Index 21.95 (61.69 kg, 167.64 cm) kd3 MDM: 08/11 21:[address] [facility] 08/12 03:07 ED course: consult with DR May \T\[facility] who requests repeat lactate prior cp to transfer and will accept patient. 08/11 21:49 Order name: Blood Culture Adult (2) 08/11 21:49 Order name: CBC with Diff; Complete Time: 23:05 cp 08/11 23:05 Interpretation: Normal except: WBC 15.70; RBC 2.80; HGB 9.3; HCT 27.9; RDW 16.1; MATEO% cp 91.6; LYM% 4.5; NEUT A 14.4. 08/11 21:49 Order name: CMP; Complete Time: 23:15 08/11 23:05 Interpretation: Normal except: K 2.3; CL 109; AST 107; ALT 74; ALK 375; BILIT 4.5; ALB cp 1.7; GLOB 5.3; A/G 0.3. 08/11 21:49 Order name: Lactate w/ 2H reflex if indic.; Complete Time: 23:05 08/11 23:06 Interpretation: Abnormal: LAC 2.4. 08/11 21:49 Order name: Protime (+inr); Complete Time: 01:36 08/11 21:49 Order name: Ptt, Activated; Complete Time: 01:36 08/11 21:49 Order name: Urinalysis w/ reflexes 08/11 22:22 Order name: Manual Differential; Complete Time: 23:05 [facility] 08/12 01:36 Interpretation: Normal except: SEGS 92; BANDS [F] 3; LYM 1. 08/11 22:48 Order name: NT PRO-BNP; Complete Time: 23:15 [facility] 08/11 23:16 Interpretation: Abnormal: NT PRO-BNP 618. 08/11 23:24 Order name: SARS-COV-2 RT PCR; Complete Time: 01:36 [facility] 08/11 23:24 Order name: Influenza Screen (A ; Complete Time: 01:36 [facility] 08/11 23:24 Order name: Respiratory Syncytial Virus Ag; Complete Time: 01:36 [facility] 08/12 03:36 Order name: Lactate Sepsis 2 HR Follow-up [facility] 08/12 04:36 Order name: Urine Culture [facility] 08/11 21:49 Order name: Chest Single View XRAY; Complete Time: 23:05 08/11 23:07 Order name: CT Chest, Abdomen, Pelvis - W/Contrast 08/11 21:49 Order name: EKG; Complete Time: 21:49 08/11 21:49 Order name: Accucheck 08/11 21:49 Order name: Cardiac monitoring 08/11 21:49 Order name: EKG - Nurse/Tech 08/11 21:49 Order name: IV Saline Lock - Large Bore; Complete Time: 22:06 08/11 21:49 Order name: Labs collected and sent; Complete Time: 22:06 08/11 21:49 Order name: O2 Per Protocol; Complete Time: 22:06 08/11 21:49 Order name: O2 Sat Monitoring; Complete Time: 22:06 08/11 21:49 Order name: Vital Signs cp EC:07 Rate is 89 beats/min. Rhythm is regular. QRS [place] is Normal. AL interval is normal. QRS jaja interval is normal. QT interval is normal. No Q waves. T waves are Normal. No ST changes noted. Clinical impression: Normal ECG and No evidence of ischemia. Interpreted by me. Reviewed by me. Administered Medications: 08/11 23:04 Not Given (Physician Discretion): NS 0.9% IV 500 ml IV at 500 ml/hr continuous 08/12 00:07 Drug: Potassium Chloride IV 20 mEq Route: IV; Rate: calculated rate; Site: right kl antecubital; 00:07 Drug: NS 0.9% IV 250 ml Route: IV; Rate: bolus; Site: right antecubital; 03:03 Drug: Potassium PO Effervescent Tablet 50 mEq Route: PO; 03:38 Drug: Piperacillin-Tazobactam IVPB 3.375 grams Route: IVPB; Infused Over: 60 mins; Site: right antecubital; Disposition Summary: 08/12/22 02:32 Transfer Ordered Transfer Location: [facility] cp Reason: Higher level of care cp Condition: Stable cp Problem: an ongoing problem cp Symptoms: have improved cp Accepting Physician: doctor(08/12/22 08:40) db Diagnosis - Sepsis, unspecified organism cp Forms: - Medication Reconciliation Form cp - SBAR form cp Signatures: Dispatcher [employer] EDPat Desai RN RN kl Anderson, Corey, MD MD cha Page, Corey, PA PA cp Charlene Landin RN RN kd3 Zenia Cyr RN RN db Corrections: (The following items were deleted from the chart) 08/11 22:48 22:39 PROBNP+C.LAB.BRZ ordered. EDTN EDMS 23:08 21:41 Allergies: No Known Allergies; kd3 kl 23:08 21:41 PSHx: inguinal hernia repair; 3 23:24 23:08 COVID-19/FLU A+B/RSV+MOL.LAB.BRZ ordered. EDMS EDMS 08/12 03:15 03:07 LACTATE+C.LAB.BRZ ordered. EDMS EDMS 08:40 02:32 doctor cp db
[2022-08-12] MEDS ORDERED: PIPERACIL/TAZO 3.375 GM VIAL IV ONE (03:09)
[2022-08-12 04:14] LABS: Specific Gravity 1.017 (1.005-1.030); Urine Bacteria 20-50 /HPF (<20); Urine Bilirubin NEGATIVE (Negative); Urine Blood Negative (Negative); Urine Clarity Extremely Turbid (Clear); Urine Color Yellow (Yellow); Urine Glucose NEGATIVE (Negative); Urine Mucus Slight /HPF (None Seen); Urine Protein TRACE (Negative); Urine RBC <5 /HPF (None Seen); Urine Urobilinogen Normal (Normal); Urine WBC Clump Occasional /HPF (None Seen)
[2022-08-12 08:52] VITALS: TEMP 98.8
[2022-08-12 08:56] VITALS: BP 105/49; O2SAT 99
--- NOTE | 2022-08-12 19:36 | RAD REPORT ---
EXAM DESCRIPTION: CT Chest, Abdomen and Pelvis With Intravenous Contrast CLINICAL HISTORY: The patient is 71 years old and is Female; ABDOMINAL DISTENTION TECHNIQUE: Axial computed tomography images of the chest, abdomen and pelvis with intravenous contra st. Sagittal and coronal reformatted images were created and reviewed. This CT exam was performed using one or more of the following dose reduction techniques: automated exposure control, adjustme nt of the mA and/or kV according to patient size, and/or use of iterative reconstruction technique. COMPARISON: CT the abdomen and pelvis July 28, 2022 FINDINGS: CHEST: LUNGS: Compressive atelectasis within the lung bases is noted. Innumerable bilateral pulmonary nodules are present, the largest within the right upper lobe measures approximately 1.0 cm. PLEURAL SPACE: Small bilateral pleural effusions are present. No pneumothorax. HEART: No cardiomegaly. No pericardial effusion. ABDOMEN: LIVER: Heterogeneous mass within the inferior right hepatic lobe adjacent to the gallbladder alexander a is present, similar to prior. GALLBLADDER AND BILE DUCTS: The gallbladder is moderately distended. There has been interval pl acement of a common bile duct stent. Extensive intrauterine extra hepatic biliary dilatation is noted with associated pneumobilia. Soft tissue density throughout the biliary tree is noted though less co nspicuous on today's exam. PANCREAS: No ductal dilation. No mass. SPLEEN: Unremarkable. ADRENALS: Unremarkable. No mass. KIDNEYS AND URETERS: Moderate to severe bilateral hydroureteronephrosis is redemonstrated. No obs tructing renal or ureteral calculus is seen. STOMACH AND BOWEL: The stomach is decompressed. The small bowel is also relatively decompressed. A moderate amount stool is present throughout colon. There is no mucosal thickening or evidence of ob struction. PELVIS: APPENDIX: No findings to suggest acute appendicitis. BLADDER: Bladder prolapse is again noted with the bladder moderately distended. REPRODUCTIVE: Unremarkable as visualized. CHEST, ABDOMEN and PELVIS: INTRAPERITONEAL SPACE: Interval increase in the amount of ascites is noted throughout the abdomen and pelvis, now moderate to large in appearance. No free air. BONES/JOINTS: No acute fracture. SOFT TISSUES: A small fluid-containing right inguinal hernia is present. A fat and fluid contai marianna umbilical hernia is present. Diffuse body wall edema is noted. VASCULATURE: Unremarkable. No aortic aneurysm. LYMPH NODES: Extensive retroperitoneal and brittany hepatis adenopathy is present, stable from prior exam. IMPRESSION: 1. Interval placement of a common bile duct stent with development of extensive pneumo bilia. Persistent biliary dilatation and hepatic mass is again noted most concerning for malignancy. Correlation with patient's history and follow-up as indicated. 2. Innumerable bilateral pulmonary nodules. Findings are most suggestive of metastatic disease. 3. Worsening ascites throughout the abdomen and pelvis. 4. Persistent extensive adenopathy, again suggestive of metastatic disease. 5. Interval development of small pleural effusions with bibasilar atelectasis. 6. Persistent bladder prolapse with associated moderate to severe bilateral hydroureteronephrosis. Electronically signed by: Johanna Cruz MD 08/12/2022 12:43 AM CDT Due to temporary technical issues with the PACS/Fluency reporting system, reports are being signed by the in house radiologists without review as a courtesy to insure prompt reporting. The interpreting radiologist is fully responsible for the content of the report.
--- NOTE | 2022-08-12 20:36 | EKG ---
Test Date: 2022-08-12 Test Time: 03:55:56 Tobacco Educator: CONCEPCIÓN MEASUREMENT RESULTS: Intervals: Rate: 89 LA: 136 QRSD: 80 QT: 380 QTc: 462 [place]: P: 38 LA: 136 QRS: 35 T: 20 INTERPRETIVE STATEMENTS: Normal sinus rhythm Normal ECG No previous ECG available for comparison Electronically Signed On 08-12-22 20:32:50 CDT by Arnold Calderon
== END 2022-08-12 08:40 | disposition short-term general hospital (02) ==
LOC: ER 20:09
DX: A41.9 Sepsis, unspecified organism (principal); R53.1 Weakness; R53.83 Other fatigue; R06.02 Shortness of breath; Z20.822 Contact with and (suspected) exposure to COVID-19; Z96.89 Presence of other specified functional implants
CPT/HCPCS: 87040 ×2; 85025; 36415; 85610; 83605; 85730; 80053; 83880; 71045; J3480; J7050 ×2; 71260; 74177; 81001; 87086; 87088; 87205; 87635; 87804; 87807; 93005; J2543; Q9967